=== PATIENT | female | born 1960 | race Caucasian/White ===

== ENCOUNTER 2019-05-01 19:30 | Inpatient (IN) | payer MEDICARE ==
[2019-05-01 20:30] LABS: Hemoglobin 12.2 g/dL (12.0-16.0); Mean Corpuscular Hemoglobin 38.4 pg (27.0-31.0); Mean Platelet Volume 7.9 fL (7.4-10.4); Platelet Count 259 thou/uL (130-400); RBC Distribution Width 11.6 % (11.5-14.5); Red Blood Cell (RBC) Count 3.18 mill/uL (4.20-5.40); White Blood Cell (WBC) Count 7.6 thou/uL (4.8-10.8)
[2019-05-01 20:36] LABS: ALT (SGPT) 14 U/L (8-55); AST (SGOT) 23 U/L (5-34); Albumin 3.9 g/dL (3.5-5.0); Alkaline Phosphatase 88 U/L (40-110); Anion Gap 11 mmol/L (10-20); BUN (Urea Nitrogen) 6 mg/dL (9.8-20.1); Bilirubin, Total 0.2 mg/dL (0.2-1.2); CK (CPK) 514 U/L (29-168); Calc. Creatinine Clearance 0 mL/min (70-130); Calcium 8.7 mg/dL (7.8-10.44); Carbon Dioxide 27 mmol/L (22-29); Chloride 107 mmol/L (98-107); Estimated GFR-MDRD 79; Globulin 2.5 g/dL (2.4-3.5); Glucose 108 mg/dL (70-105); Potassium 3.6 mmol/L (3.5-5.1); Protein, Total 6.4 g/dL (6.0-8.3); Sodium 141 mmol/L (136-145)
[2019-05-01 20:53] LABS: #Basophils 0.1 thou/uL (0.0-0.2); #Eosinphils 0.1 thou/uL (0.0-0.7); #Lymphocytes 2.7 thou/uL (1.20-3.40); #Monocytes 0.5 thou/uL (0.11-0.59); #Neutrophils 4.2 thou/uL (1.40-6.50); %Basophils 1.2 % (0.0-1.0); %Eosinophils 1.9 % (0.0-10.0); %Lymphocytes 35.6 % (21.0-51.0); %Monocytes 6.4 % (0.0-10.0); %Neutrophils 54.9 % (42.0-75.0); MDiff Complete? YES; Macrocytosis SLIGHT = 6-15 cells (100X) (0-5/hpf)
[2019-05-01] MEDS ORDERED: Acetaminophen 500 MG TAB ONE (22:15)
[2019-05-01] MEDS ORDERED: Aspirin 325 MG TAB ONE (23:54)
[2019-05-02] MEDS ORDERED: Enalaprilat Dihydrate 1.25 MG/ML VIAL SLOW IVP PRN (01:42)
[2019-05-02] MEDS ORDERED: hydrALAZINE 20 MG/ML VIAL SLOW IVP PRN (01:42)
[2019-05-02] MEDS ORDERED: Labetalol HCl 100 MG/20 ML VIAL SLOW IVP PRN (01:42)
[2019-05-02] MEDS ORDERED: Fioricet 325/50/40 mg Tablet PO PRN (01:48)
[2019-05-02] MEDS ORDERED: Dicyclomine 20 MG TAB PO SCH (02:00)
[2019-05-02] MEDS ORDERED: Cyclobenzaprine 10 MG TAB PO SCH ×3 (02:00→09:00)
[2019-05-02] MEDS ORDERED: Gabapentin 300 MG CAP PO SCH (02:15)
[2019-05-02] MEDS ORDERED: Emtricitabine/Tenofovir 200-300 MG TAB PO SCH ×2 (02:15→21:00)
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
[2019-05-02] MEDS: Morphine ER 15 MG TAB PO SCH ×3 (03:18→19:25)
[2019-05-02 03:57] VITALS: BMI 21.5
[2019-05-02 05:09] LABS: #Basophils 0.1 thou/uL (0.0-0.2); #Eosinphils 0.1 thou/uL (0.0-0.7); #Lymphocytes 1.8 thou/uL (1.20-3.40); #Monocytes 0.4 thou/uL (0.11-0.59); #Neutrophils 3.3 thou/uL (1.40-6.50); %Basophils 0.9 % (0.0-1.0); %Eosinophils 2.5 % (0.0-10.0); %Monocytes 6.9 % (0.0-10.0); %Neutrophils 58.7 % (42.0-75.0); Hemoglobin 11.8 g/dL (12.0-16.0); Mean Corpuscular HGB CONC 33.6 g/dL (32.0-36.0); Mean Corpuscular Hemoglobin 37.6 pg (27.0-31.0); Platelet Count 263 thou/uL (130-400); RBC Distribution Width 11.6 % (11.5-14.5); Red Blood Cell (RBC) Count 3.14 mill/uL (4.20-5.40); White Blood Cell (WBC) Count 5.7 thou/uL (4.8-10.8)
[2019-05-02 05:16] LABS: INR-International Normal Ratio 0.9; PTT 28.9 SEC (22.9-36.1); Prothrombin Time 12.1 SEC (12.0-14.7)
[2019-05-02 05:42] LABS: ALT (SGPT) 12 U/L (8-55); AST (SGOT) 20 U/L (5-34); Albumin 3.7 g/dL (3.5-5.0); Alkaline Phosphatase 89 U/L (40-110); Bilirubin, Direct 0.1 mg/dL (0.1-0.3); Bilirubin, Total 0.2 mg/dL (0.2-1.2)
[2019-05-02 05:43] LABS: Anion Gap 11 mmol/L (10-20); BUN (Urea Nitrogen) 6 mg/dL (9.8-20.1); Calc. Creatinine Clearance 78 mL/min (70-130); Calcium 8.9 mg/dL (7.8-10.44); Carbon Dioxide 26 mmol/L (22-29); Cardiac Risk 4.1 (Less than 4.5); Chloride 108 mmol/L (98-107); Cholesterol 205 mg/dl (< 200 Desired); Estimated GFR-MDRD 90; Glucose 95 mg/dL (70-105); HDL Cholesterol 50 mg/dL (>60 Neg Risk); LDL Cholesterol, Calculated 132 mg/dL; Potassium 3.8 mmol/L (3.5-5.1); Sodium 141 mmol/L (136-145); Triglycerides 115 mg/dL (Less than 150)
--- NOTE | 2019-05-02 08:05 | CT ---
CT angiogram head with 3-D rendering: CT angiogram neck with 3-D rendering: Emergency after hours exam 2:23 AM 05/02/2019 This a final report There are some generalized atherosclerotic calcific plaque particularly in the intracranial portions of the internal carotid arteries bilaterally worse on the right side as well as the intracranial portions of both right and left vertebral arteries with a mid to high-grade stenosis of the right jim tebral artery. No evidence for an M1 segment significant stenosis. This report is in agreement with the preliminary report.
[2019-05-02] MEDS ORDERED: Cyclobenzaprine 10 MG TAB PO PRN (08:14)
[2019-05-02] MEDS: oxyCODONE/Acetaminophen 5 mg/325 mg Tablet PO PRN ×2 (08:27→22:46)
[2019-05-02] MEDS ORDERED: Aspirin 325 MG TAB PO SCH (09:00)
[2019-05-02] MEDS ORDERED: Lisinopril 20 MG TAB PO SCH (09:00)
[2019-05-02] MEDS ORDERED: Non-Formulary Item 1 EACH (Gabapentin [Gabapentin] 600 MG) PO SCH (09:00)
[2019-05-02] MEDS: Fioricet 325/50/40 mg Tablet PO PRN ×2 (09:25→19:25)
--- NOTE | 2019-05-02 09:31 | MRI ---
MRI of thebrain with and without contrast: 05/02/2019 COMPARISON:None available HISTORY:Transient ischemic attack TECHNIQUE: Multiplanar multisequence MR imaging of thebrain with and without contrast Findings:The diffusion weighted imaging demonstrates no evidence for acute infarction. Axial gradient echo imaging demonstrates no evidence for intracranial hemorrhage. Multiple scattered subcentimeter foci of increased T2 and FLAIR signal noted within the periventricul ar white matter suggesting mild small vessel disease. The postcontrast imaging demonstrates no abnormal enhancement within the brain parenchyma. IMPRESSION:Small vessel disease with no evidence for acute infarction or intracranial hemorrhage.
[2019-05-02] MEDS: Lisinopril 20 MG TAB PO SCH (10:58)
[2019-05-02] MEDS: Gabapentin 300 MG CAP PO SCH ×3 (10:59→21:48)
[2019-05-02] MEDS: Aspirin 325 mg Enteric Coated Tablet PO SCH (10:59)
[2019-05-02] MEDS: Cyanocobalamin (Vitamin B-12) 1,000 MCG TAB PO SCH (10:59)
[2019-05-02] MEDS: Clopidogrel Bisulfate 75 MG TAB PO SCH (10:59)
[2019-05-02] MEDS: Enoxaparin Sodium 40 MG/0.4 ML SYRINGE SC SCH ×2 (11:00→12:13)
[2019-05-02] MEDS: Dicyclomine 20 MG TAB PO SCH ×3 (12:12→21:48)
[2019-05-02] MEDS ORDERED: Iopamidol-370 76% 500 ML 1 ML ONE (14:19)
[2019-05-02] MEDS ORDERED: Magnevist 469MG/ML 20 ML VIAL ONE (14:39)
[2019-05-02] MEDS ORDERED: Atorvastatin Calcium 40 MG TAB PO SCH ×2 (21:00)
[2019-05-02] MEDS ORDERED: EFAVIRENZ PO SCH (21:00)
[2019-05-02] MEDS ORDERED: EMTRICITAB PO SCH (21:00)
[2019-05-02] MEDS ORDERED: TENOFOVIR PO SCH (21:00)
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
[2019-05-03] MEDS: Morphine ER 15 MG TAB PO SCH ×2 (03:27→09:44)
[2019-05-03 04:45] LABS: #Eosinphils 0.1 thou/uL (0.0-0.7); #Lymphocytes 1.4 thou/uL (1.20-3.40); #Monocytes 0.4 thou/uL (0.11-0.59); #Neutrophils 1.6 thou/uL (1.40-6.50); %Basophils 0.9 % (0.0-1.0); %Eosinophils 3.3 % (0.0-10.0); %Lymphocytes 39.8 % (21.0-51.0); %Monocytes 11.7 % (0.0-10.0); %Neutrophils 44.2 % (42.0-75.0); Hemoglobin 11.2 g/dL (12.0-16.0); Mean Corpuscular HGB CONC 33.3 g/dL (32.0-36.0); Mean Corpuscular Hemoglobin 37.7 pg (27.0-31.0); Mean Platelet Volume 7.9 fL (7.4-10.4); Platelet Count 256 thou/uL (130-400); RBC Distribution Width 11.5 % (11.5-14.5); Red Blood Cell (RBC) Count 2.97 mill/uL (4.20-5.40); White Blood Cell (WBC) Count 3.6 thou/uL (4.8-10.8)
[2019-05-03 05:16] LABS: Anion Gap 10 mmol/L (10-20); BUN (Urea Nitrogen) 10 mg/dL (9.8-20.1); Calc. Creatinine Clearance 74 mL/min (70-130); Calcium 8.6 mg/dL (7.8-10.44); Carbon Dioxide 28 mmol/L (22-29); Chloride 106 mmol/L (98-107); Estimated GFR-MDRD 85; Glucose 93 mg/dL (70-105); Potassium 4.1 mmol/L (3.5-5.1); Sodium 140 mmol/L (136-145)
[2019-05-03] MEDS ORDERED: Dicyclomine 20 MG TAB PO SCH (09:00)
[2019-05-03] MEDS: Aspirin 325 mg Enteric Coated Tablet PO SCH (09:44)
[2019-05-03] MEDS: Cyanocobalamin (Vitamin B-12) 1,000 MCG TAB PO SCH (09:46)
[2019-05-03] MEDS: Gabapentin 300 MG CAP PO SCH ×2 (09:46→16:06)
[2019-05-03] MEDS: Dicyclomine 20 MG TAB PO SCH ×2 (09:47→16:06)
[2019-05-03] MEDS: Clopidogrel Bisulfate 75 MG TAB PO SCH (09:47)
[2019-05-03] MEDS: Enoxaparin Sodium 40 MG/0.4 ML SYRINGE SC SCH (09:49)
[2019-05-03] MEDS: Lisinopril 20 MG TAB PO SCH (10:17)
[2019-05-03 11:44] VITALS: BP 128/63; TEMP 98.4
--- NOTE | 2019-05-03 13:47 | MRI ---
MRI cervical spine noncontrast: DATE: 05/03/2019 HISTORY: 59-year-old female with right cervical radiculopathy and cervicalgia. COMPARISON: None FINDINGS: There is reversal of the normal cervical lordosis, with apex of kyphosis at C3-4. There is moderate t o severe disc space narrowing at C3-4, C4-5, C5-6, and C6-7. At all those levels, there are broad based disc-osteophytic bar complex is that protrude into the spinal canal, and indent the ventral paul face of the spinal cord, displacing the spinal cord posteriorly. These disc-osteophyte complexes contiguously extend as moderate to large bilateral uncinate process osteophytes that encroach upon th e bilateral neural foramina. Vertebral body heights are maintained. Multilevel predominantly mild degenerative facet changes bilaterally. Moderate to severe left facet DJD at C7-T1. Mild to moderate facet DJD on the right at C7-T1. Cervical spinal cord is normal in size and signal. Grade 1 anterolisthesis of C7 on T1 and T2 on T3 due to facet DJD. C1-2: No central stenosis. C2-3: Small central disc protrusion. No high-grade central stenosis. No neural foraminal stenosis. C3-4: Somewhat severe central spinal canal stenosis. Very severe bilateral neural foraminal stenosis, left worse than right. C4-5: Severe central spinal canal stenosis. Severe bilateral neural foraminal stenosis. C5-6: Very severe central spinal canal stenosis. Severe bilateral neural foraminal stenosis, left wor se than right. C6-7: Severe central spinal canal stenosis. Severe right neural foraminal stenosis. Extremely severe left neural foraminal stenosis. C7-T1: Slight grade 1 anterolisthesis of C7 on T1 due to facet DJD. No high-grade central spinal david l stenosis. Moderate to severe bilateral neural foraminal stenosis. IMPRESSION: 1. Cervical spondylosis, including multilevel moderate to severe degenerative disc disease. 2. Multilevel severe central spinal canal stenosis (with chronic cord impingements) and multilevel se preston neural foraminal stenosis (with chronic nerve root impingements).
[2019-05-03] MEDS: oxyCODONE/Acetaminophen 5 mg/325 mg Tablet PO PRN (13:49)
[2019-05-03] MEDS ORDERED: Emtricitabine/Tenofovir 200-300 MG TAB PO SCH (21:00)
--- NOTE | 2019-05-05 11:58 | DIS ---
DATE OF ADMISSION: 05/01/2019 DATE OF DISCHARGE: 05/03/2019 REASON FOR HOSPITALIZATION: Stroke symptoms. SIGNIFICANT FINDINGS: The patient was found to have a negative stroke workup, though she was found to have moderate to severe chronic changes with degenerative disk disease that will require outpatient followup in the clinic. PROCEDURES PERFORMED AND TREATMENTS RENDERED: Ms. Page is a very pleasant 59-year-old female who presented to [facility] with stroke symptoms on 05/01/2019. Please see full history and physical, consultation notes from Neurology, and full radiographic reports for full details. The patient had all appropriate neurologic imaging prior to discharge and was found to have no acute neurologic signs or symptoms of stroke. The patient's CT angiography of the head and neck was within normal limits. The patient's MRI of the brain was negative for acute CVA. The patient's MRI of the cervical spine does show chronic changes with moderate to severe severity on multiple spinal levels. The patient does not want to have aggressive surgical procedures, and she was interested in medical therapy. The patient states that she would like to try conservative management with stretching, strength building, neuropathy medications including her gabapentin and the addition of lidocaine patches to control these symptoms. The patient does not have any impairment in her strength, and she has good functional status. The patient is able to take care of herself, walks to and from the restroom and down the halls without difficulty. The patient does have some numbness and tingling and a burning sensation in her extremities, which she states that the gabapentin does help with. I recommended that she discuss these findings with her primary care physician in the next 5 to 7 days and if conservative measures are not adequate, then she may need to see a spinal surgeon in the outpatient setting as a last resort. The patient is happy with this plan of care. I stressed the importance of the patient abstaining from tobacco use, and nicotine patches were sent to her preferred pharmacy to help her quit smoking. The patient was recommended safe for discharge by Neurology on 05/03/2019. CONDITION ON DISCHARGE: Stable. SPECIFIC INSTRUCTIONS FOR THE PATIENT/FAMILY: 1. The patient recommended to take all medications as directed, to be re-evaluated by primary care physician in the next 5 to 7 days. 2. The patient recommended to follow up with primary care physician in the next 5 to 7 days. 3. The patient recommended to return to acute care hospital immediately if she develops any new or worsening weakness, paresthesias, or any other symptoms. 4. The patient recommended to return to acute care hospital immediately if signs or symptoms return, worsen, or any other new symptoms occur. 5. 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 DISCHARGE MEDICATIONS: Please see full discharge medication list for details. 1. Lidocaine 5% transdermal patch, topical daily p.r.n. pain or neuropathy. 2. Nicoderm 14 mg transdermal patch daily. 3. Metoprolol succinate 100 mg one tablet p.o. b.i.d. 4. Aspirin 325 mg one tablet p.o. daily. 5. Lisinopril 20 mg one tablet p.o. daily. 6. Plavix 75 mg one tablet p.o. daily. 7. Atripla one tablet p.o. at bedtime. 8. Fioricet 1 tablet p.o. b.i.d. p.r.n. migraine. 9. Gabapentin 600 mg one tablet p.o. t.i.d. 10. Atorvastatin 80 mg one tablet p.o. at bedtime. 11. Flexeril 10 mg one tablet p.o. b.i.d. p.r.n. muscle spasms. 12. Bentyl 20 mg one tablet p.o. t.i.d. 13. Vitamin B12 of 1000 mcg one tablet p.o. daily. 14. Vitamin D3 of 1000 units p.o. daily. 15. Morphine extended release 15 mg p.o. t.i.d. 16. Oxycodone/acetaminophen 7.5mg/325 mg one tablet p.o. t.i.d. p.r.n. severe pain. 17. Nitroglycerin 0.4 mg sublingual q.5 minutes p.r.n. chest pain or discomfort. Greater than 40 minutes spent coordinating care and discharge process for this patient. Job ID: [id number]
[2019-05-05 14:09] LABS: HIV-1 Quantitative, RNA PCR <20 copies/mL (.)
[2019-05-05 15:09] LABS: Absolute CD4 833 /uL (359-1519); Lymphocytes/Gated Cell Count 1.7 x10E3/uL (0.7-3.1); Total Lymphocyte 30 % (Not Estab.); WBC Total Count 5.4 x10E3/uL (3.4-10.8)
--- NOTE | 2019-05-06 07:20 | PQF ---
Shital ReesuLci camargo PRASHANT THOMAS [id number] CLINICAL DOCUMENTATION CLARIFICATION FORM: POST DISCHARGE Addendum to original discharge summary date: ____ Late entry note date: __ DATE: 05/06/2019 ATTN:PRASHANT THOMAS Please exercise your independent, professional judgment in responding to the clarification form. Clinical indicators are provided on the bottom of this form for your review Please check appropriate box(s): [ XX ] Muscle Weakness [ ] Weakness NOS [ ] Other diagnosis [ ] Unable to determine CLINICAL INDICATORS - SIGNS / SYMPTOMS / LABS - R sided weakness, facial droop, dysarthria- H&P, 05/02, Janet Forrest MD - The patient does have some numbness and tingling and a burning sensation in her extremities- DS, 05/03, PRASHANT THOMAS - Negative for stroke workup- DS, 05/03, PRASHANT THOMAS - found to have moderate to severe chronic changes with DDD- DS, 05/03, PRASHANT THOMAS - She has good functional status- DS, 05/03, PRASHANT THOMAS RISK FACTORS - PMH: Hx of CVA 2015- H&P, 05/02, Janet Forrest MD - PMH: HIV- H&P, 05/02, Janet Forrest MD TREATMENT: - Morphine.IV- MAY, 05/02 (This form is maintained as a part of the permanent medical record) 2014 [place], [employer]. All Rights Reserved Juanita [email or web address]
== END 2019-05-03 16:22 | disposition home or self-care (01) | DRG 556 ==
LOC: ERS 19:30 → 2SE 21:11 → OBSVTOIN 21:11
PROVIDERS: ADMIT Internal Medicine; ATTEND Internal Medicine
DX: M62.81 Muscle weakness (generalized) (principal); R29.810 Facial weakness; R47.81 Slurred speech; I10 Essential (primary) hypertension; I25.10 Atherosclerotic heart disease of native coronary artery without angina pectoris; R47.1 Dysarthria and anarthria; Z21 Asymptomatic human immunodeficiency virus [HIV] infection status; F17.210 Nicotine dependence, cigarettes, uncomplicated; Z86.73 Personal history of transient ischemic attack (TIA), and cerebral infarction without residual deficits; Z95.1 Presence of aortocoronary bypass graft; Z90.49 Acquired absence of other specified parts of digestive tract; Z90.710 Acquired absence of both cervix and uterus; Z95.5 Presence of coronary angioplasty implant and graft
CPT/HCPCS: 36415; 70450; 70496; 70498; 70553; 72141; 80048; 80053; 80061; 80076; 82550; 83735; 83880; 84484; 85025; 85048; 85610; 85730; 86361; 87536; 87804; 93005; 93306; A9579; J1650; Q9967

== ENCOUNTER 2019-10-06 05:38 | Outpatient (CLI) | payer MEDICARE, OTHER ==
[2019-10-06 14:05] LABS: Hemoglobin 13.4 g/dL (12.0-16.0); Mean Corpuscular HGB CONC 33.8 g/dL (32.0-36.0); Mean Corpuscular Hemoglobin 37.5 pg (27.0-31.0); Mean Platelet Volume 7.9 fL (7.4-10.4); Platelet Count 317 thou/uL (130-400); RBC Distribution Width 11.9 % (11.5-14.5); Red Blood Cell (RBC) Count 3.56 mill/uL (4.20-5.40); White Blood Cell (WBC) Count 6.6 thou/uL (4.8-10.8)
[2019-10-06 14:22] LABS: Anion Gap 14 mmol/L (10-20); BUN (Urea Nitrogen) 8 mg/dL (9.8-20.1); Calc. Creatinine Clearance 0 mL/min (70-130); Carbon Dioxide 23 mmol/L (22-29); Chloride 107 mmol/L (98-107); Estimated GFR-MDRD 78; Glucose 85 mg/dL (70-105); Sodium 140 mmol/L (136-145)
[2019-10-07 13:10] LABS: SARS-CoV-2 MS2 Positive; SARS-CoV-2 N Gene Negative; SARS-CoV-2 S Gene Negative; SARS-CoV-2 orf1ab Negative
== END 2019-10-06 05:39 | disposition home or self-care (01) ==
LOC: LABBT 05:38
PROVIDERS: ATTEND Emergency Medicine
DX: Z01.812 Encounter for preprocedural laboratory examination (principal); Z11.59 Encounter for screening for other viral diseases; M48.061 Spinal stenosis, lumbar region without neurogenic claudication
CPT/HCPCS: 80048; 85027; U0003; 87635

== ENCOUNTER 2019-10-08 05:25 | Day surgery (SDC) | payer MEDICARE ==
[2019-10-01 10:38] VITALS: BMI 19.3
--- NOTE | 2019-10-07 13:06 | HP ---
HISTORY OF PRESENT ILLNESS: Ms. Page is initially referred to us from ER evaluation after sustaining a fall, where she had L2 compression fracture. She had imaging performed in the ER visit, which was an MRI scan of the lumbar spine, which reveals high-grade severe lumbar stenosis at L4-L5 secondary to spondylolisthesis and degenerative changes in the facet joints. She struggles with back pain and right lower extremity pain. She also reports a series of several falls over the last few weeks and uses a walker at home secondary to her discomfort. She also has had 1 to 2 episodes of very low volume incontinence both urinary and fecal that she recalls, this is certainly not a constant trouble. She has attempted physical therapy, pain medications, and injections in the lumbar spine. However, these have only provided her with minimal relief. She hopes to discuss possible surgical intervention. PAST MEDICAL HISTORY: Significant for coronary arterial disease, hyperlipidemia, hypertension, anxiety, migraines, diverticulosis, history of CVA. PAST SURGICAL HISTORY: section x2, cholecystectomy, complete hysterectomy, appendectomy, CABG x2. ALLERGIES: NO KNOWN DRUG ALLERGIES. CURRENT MEDICATIONS: 1. Toprol-XL. 2. Lisinopril. 3. Aspirin. 4. Plavix. 5. Atripla. 6. Fvcejmvooj-vggnrnbuahqkp-klcnqgsp. 7. Gabapentin. 8. Flexeril. 9. Dicyclomine. 10. Atorvastatin. 11. Nitroglycerin p.r.n. 12. Tylenol No. 3 p.r.n. ASSESSMENT: Lumbar spinal stenosis with neurogenic claudication and lumbar radiculopathy. PLAN: Dr. Laura met with the patient, reviewed imaging, and advocated for L4-L5 decompression. He explained to the patient the risks, benefits, and alternatives of the procedure. The patient expressed understanding and elected to move forward with surgery as discussed. I do believe the patient is mentally competent and capable of making medical decisions for herself. We will move forward with surgery as planned. Job ID: [id number]
[2019-10-08] MEDS ORDERED: Bupivacaine PF 0.5% 30 ML VIAL ONE (06:11)
[2019-10-08] MEDS ORDERED: EPINEPHrine 1 MG/ML AMP ONE (06:11)
[2019-10-08] MEDS ORDERED: Thrombin 5000 UNITS/5 ML VIAL ONE (06:11)
[2019-10-08] MEDS ORDERED: Fentanyl 100 MCG/2 ML VIAL ONE ×3 (06:17→08:46)
[2019-10-08] MEDS ORDERED: Midazolam HCl 2 mg/2 ml Vial ONE (06:18)
[2019-10-08] MEDS ORDERED: Morphine 4 MG/ML VIAL ONE (08:57)
--- NOTE | 2019-10-08 09:13 | OP ---
DATE OF PROCEDURE: 10/08/2019 BATON TEACHER: Tony Cuenca PA-C INDICATION: Pain. DIAGNOSIS: Lumbar stenosis. PROCEDURE PERFORMED: L4-L5 decompression. ANESTHESIA: General. DESCRIPTION OF PROCEDURE: The patient was brought into the operating room and placed under general anesthesia. She was flipped from the supine to prone position on operating room table. A linear incision was planned over the L4-L5 segment. After prepping and draping and after an appropriate preoperative pause, the incision was created. The soft tissues were swept away from midline. Self-retaining retractors were placed in the wound for optimal exposure. After confirming appropriate level with C-arm fluoroscopy, an Adson rongeur was used to move the spinous process along the inferior aspect of L4 and the superior aspect of L5. A high-speed cutting drill bit as well as 2, 3, and 4 mm Kerrisons were then used to complete the laminectomy defect. Laminectomy defect was extended laterally to encompass the medial aspect of the facet joints. There was offset in a grade 1 spondylolisthesis present both on imaging and surgically, although there was no motion of concern. After decompressing the L4-5 segment, the wound was irrigated. Hemostasis was maintained throughout. The wound was then closed in anatomic layers, and a pressure dressing was applied. There were no known procedural complications. Job ID: [id number]
[2019-10-08] MEDS ORDERED: Acetaminophen/Codeine 30-300mg Tablet ONE (09:43)
[2019-10-08] MEDS ORDERED: Morphine 2 MG/ML VIAL ONE (10:05)
[2019-10-08] MEDS ORDERED: Rocuronium Bromide 10 MG/ML (10ML VIAL) ONE (10:49)
[2019-10-08] MEDS ORDERED: Ketorolac Tromethamine 30 MG/ML VIAL ONE (10:49)
[2019-10-08] MEDS ORDERED: Ondansetron PF 4 MG/2 ML Vial ONE (10:49)
[2019-10-08] MEDS ORDERED: PROPOFOL 200 MG/20 ML VIAL ONE (10:49)
[2019-10-08] MEDS ORDERED: Lidocaine 1% PF 5 ML VIAL ONE (10:49)
[2019-10-08] MEDS ORDERED: Glycopyrrolate 0.2 MG/ML 5 ML SYRINGE ONE (10:49)
[2019-10-08] MEDS ORDERED: Dexamethasone 20 MG/5 ML VIAL ONE (10:49)
== END 2019-10-08 11:15 | disposition home or self-care (01) ==
LOC: SDC 05:25
PROVIDERS: ATTEND Neurological Surgery
PROC: 01NB0ZZ Release Lumbar Nerve, Open Approach (ICD-10-PCS; principal; 2019-10-08)
DX: M43.16 Spondylolisthesis, lumbar region (principal); M47.26 Other spondylosis with radiculopathy, lumbar region; M48.062 Spinal stenosis, lumbar region with neurogenic claudication; I25.10 Atherosclerotic heart disease of native coronary artery without angina pectoris; E78.5 Hyperlipidemia, unspecified; I10 Essential (primary) hypertension; F41.9 Anxiety disorder, unspecified; G43.909 Migraine, unspecified, not intractable, without status migrainosus; R32 Unspecified urinary incontinence; R15.9 Full incontinence of feces; Z86.73 Personal history of transient ischemic attack (TIA), and cerebral infarction without residual deficits; Z79.02 Long term (current) use of antithrombotics/antiplatelets; Z79.82 Long term (current) use of aspirin; Z79.899 Other long term (current) drug therapy; Z95.1 Presence of aortocoronary bypass graft
CPT/HCPCS: 63047; 76000; J2270; J0171; J0690; J2250; J3010; S0020

== ENCOUNTER 2019-12-18 14:57 | Emergency (ER) | payer MEDICARE ==
[2019-12-18] MEDS ORDERED: Morphine 4 MG/ML VIAL ONE ×2 (16:10→18:03)
--- NOTE | 2019-12-18 16:53 | MRI ---
Exam: Thoracic spine MRI without contrast HISTORY: Previous compression fractures. Fecal incontinence of the last several days in addition wors ening pain. COMPARISON: None FINDINGS: Appropriate T1 marrow signal intensity of the thoracic vertebra. Thoracic spine vertebral b nj height is maintained from T1 through T11. There is no evidence of fracture. No significant STIR hyperintensity to suggest vertebral body edema or ligamentous injury. There are type II Modic changes at the anterior disc space at T5-T6, T6-T7, T7-T8, and T8-T9. There i s remote mild compression fracture at T12 and a prominent Schmorl's node along the inferior endplate of L1. There is subtle edema along the posterior superior T12 endplate, nonspecific. There i s mild retropulsion. Otherwise, no significant STIR hyperintensity. Appropriate signal intensity visualized paraspinal muscles, solid organs, mediastinum and lung parenc hyma The thoracic cord has a normal size and signal intensity. No cord malacia. No cord expansion. No abno rmal T2 hyperintensities in the cord. Conus medullaris extends beyond the T11 level. Axial images are obtained from T1-T2 through T10-T11. The axial images from T11-T12 down to L5-S1 sindy l be commented upon on a separate lumbar spine MRI report. The visualized central spinal canal and neural foramina are patent from T1-T2 through T10-T11 IMPRESSION: 1. Predominantly remote compression fracture and endplate irregularities at T12 and L1. Small focus o f edema is noted along the superior posterior T12 endplate. Mid mild retropulsion. Please refer to lumbar spine MRI for further evaluation of the T11-T12 disc space as well as the T12 vertebral body. 2. Visualized thoracic cord has normal size and signal intensity. No significant central canal stenos is. 3. Type II Modic changes in the mid thoracic spine.
--- NOTE | 2019-12-18 17:04 | MRI ---
MRI LUMBAR SPINE WITHOUT CONTRAST: 12/18/19 INDICATIONS: Back pain with incontinence. Comparison made to CT lumbar spine of 06/22/19. Compression deformity of the T12 vertebra is again seen and is stable. No edema. Diffuse degenerative disc change throughout the lumbar spine appears stable. Loss of disc space with anterolisthesis of L 4-5 is stable. Degenerative disc changes at L5-S1 appears stable. There is slight retropulsion of the posterior corner of the T12 vertebra flattening the thecal sac. N o evidence of impression on the conus and minimal central canal stenosis. At T12-L1, mild disc bulge without central canal stenosis. L1-2: Minimal disc bulge. No central canal or foraminal stenosis. L2-3: Diffuse disc bulge. Facet hypertrophy. Mild to moderate central canal stenosis. Mild left calvin inal encroachment. L3-4: Diffuse disc bulge. Moderate facet and ligamentous hypertrophy. Moderate central canal stenosis . Mild bilateral foraminal narrowing without significant foraminal stenosis. A disc osteophyte comple x may contact the exiting left L3 nerve root. L4-5: Anterolisthesis with diffuse disc bulge and facet hypertrophy results in moderate central canal stenosis. Bilateral foraminal stenosis at this level. Postop changes are seen posteriorly at L4-5 with laminectomy change. There is abnormal signal in the operative bed and extending to the spinal canal consistent with postoperative change. The postoperati ve changes have occurred since the CT of 06/22/19. L5-S1: Diffuse disc bulge. Congenitally smaller thecal sac. No significant central canal stenosis. Mi ld bilateral foraminal stenosis. Nerve root sleeve cyst seen in the sacrum. IMPRESSION: Multilevel degenerative disc change of the lumbar spine appears stable when compared to CT of 06/24/19 . Findings at each level are described. Postoperative change at L4-5 since the prior exam. No other s ignificant change. POS: AGW
== END 2019-12-18 19:30 | disposition home or self-care (01) ==
LOC: ERS 14:57
DX: M48.54XA Collapsed vertebra, not elsewhere classified, thoracic region, initial encounter for fracture (principal); B20 Human immunodeficiency virus [HIV] disease; I10 Essential (primary) hypertension; F17.210 Nicotine dependence, cigarettes, uncomplicated; Z86.73 Personal history of transient ischemic attack (TIA), and cerebral infarction without residual deficits
CPT/HCPCS: 72146; 72148; 96372; 96374; J2270

== ENCOUNTER 2020-01-29 08:29 | Outpatient (CLI) | payer MEDICARE ==
--- NOTE | 2020-01-29 09:31 | CT ---
CT Abdomen Pelvis W Con History: Epigastric pain Comparison: Abdomen pelvis CT June 2019 Findings: Lung bases are clear. No pericardial effusion. The spleen, adrenal mass, kidneys are unremarkable. No hydronephrosis. Mild pancreatic ductal dilatat ion as well as common bile duct dilatation. No significant intrahepatic biliary dilatation. These findings are similar. Moderate diverticular disease sigmoid colon without active current inflammation. No free intraperitoneal gas or fluid. No retroperitoneal periaortic adenopathy. Superior endplate compression deformity at T12 is similar. Grade 1 L4 over L5 anterolisthesis is [place]. Mild thickening of the adrenal glands. No underlying mass. Impression: 1. No acute inflammatory process within the abdomen or pelvis. 2. Continued mild dilatation of the common bile duct and pancreatic duct without obstructing mass may reflect papillary stenosis. If there is LFT elevation, nonemergent ERCP may be beneficial.
[2020-01-29] MEDS ORDERED: Iopamidol 370 76% 100 ML VIAL ONE (14:09)
== END 2020-01-29 08:30 | disposition home or self-care (01) ==
LOC: CT 08:29
PROVIDERS: ATTEND Physician Assistant Medical
DX: R10.13 Epigastric pain (principal); K59.00 Constipation, unspecified; K92.1 Melena; R15.9 Full incontinence of feces; K60.3 Anal fistula
CPT/HCPCS: 74177; Q9967

== ENCOUNTER 2020-01-30 06:40 | Outpatient (CLI) | payer MEDICARE, OTHER ==
[2020-01-30 17:49] LABS: SARS-CoV-2 MS2 Positive; SARS-CoV-2 N Gene Negative; SARS-CoV-2 S Gene Negative; SARS-CoV-2 by NAA Not Detected (NotDetected); SARS-CoV-2 orf1ab Negative
== END 2020-01-30 06:41 | disposition home or self-care (01) ==
LOC: LABBT 06:40
PROVIDERS: ATTEND Neurological Surgery
DX: Z20.828 Contact with and (suspected) exposure to other viral communicable diseases (principal)
CPT/HCPCS: 87635; U0003

== ENCOUNTER 2020-02-04 05:50 | Day surgery (SDC) | payer MEDICARE ==
[2020-02-03 12:02] VITALS: BMI 19.8
--- NOTE | 2020-02-03 22:02 | HP ---
HISTORY: Ms. Page is a pleasant 59-year-old woman presenting for evaluation of recurrent radicular pain. She had undergone prior surgery earlier this summer for a similar issue. Although this time, she has what appears to be more disk related issues on MRI, specifically scar tissue, disk material and then some osteophytes down at the level adjacent to her prior decompression down at L5-S1. She hopes to discuss surgical intervention. PAST MEDICAL HISTORY: Coronary artery disease, hyperlipidemia, hypertension, anxiety, migraines, diverticulosis, cerebrovascular accident. PAST SURGICAL HISTORY: section x2, cholecystectomy, complete hysterectomy, appendectomy, CABG x2, lumbar decompression. CURRENT MEDICATIONS: 1. Toprol-XL. 2. Lisinopril. 3. Aspirin. 4. Plavix. 5. Atripla. 6. Ewqbmctkhp-xxwudzdlfpzpj-roqkocmm. 7. Gabapentin. 8. Flexeril. 9. Dicyclomine. 10. Atorvastatin. 11. Nitroglycerin. 12. Tylenol No. 3. ALLERGIES: NO KNOWN DRUG ALLERGIES. ASSESSMENT: Lumbar radiculopathy. PLAN: Dr. Laura met with the patient, reviewed imaging, and advocated for right L4-S1 decompression. He explained to the patient the risks, benefits, and alternatives to the procedure. The patient expressed understanding and elected to move forward with surgery as discussed. I do believe the patient is mentally competent and capable of making medical decisions for herself. We will move forward with surgery as planned. Job ID: [id number]
[2020-02-04] MEDS ORDERED: EPINEPHrine 1 MG/ML AMP ONE (06:33)
[2020-02-04] MEDS ORDERED: Bupivacaine PF 0.5% 30 ML VIAL ONE (06:33)
[2020-02-04] MEDS ORDERED: Thrombin 5000 UNITS/5 ML VIAL ONE (06:33)
[2020-02-04] MEDS ORDERED: Fentanyl 100 MCG/2 ML VIAL ONE ×4 (07:22→09:56)
[2020-02-04] MEDS ORDERED: Famotidine/PF 20 mg/2ml Vial ONE (07:35)
[2020-02-04] MEDS ORDERED: Lidocaine 1% PF 5 ML VIAL ONE (08:53)
[2020-02-04] MEDS ORDERED: Dexamethasone 20 MG/5 ML VIAL ONE (08:53)
[2020-02-04] MEDS ORDERED: Glycopyrrolate 0.2 MG/ML 5 ML SYRINGE ONE (08:53)
[2020-02-04] MEDS ORDERED: PROPOFOL 200 MG/20 ML VIAL ONE (08:53)
[2020-02-04] MEDS ORDERED: Ondansetron PF 4 MG/2 ML Vial ONE (08:53)
[2020-02-04] MEDS ORDERED: EPHEDRINE 25 MG/5 ML SYRINGE ONE (08:53)
[2020-02-04] MEDS ORDERED: Rocuronium Bromide 10 MG/ML (10ML VIAL) ONE (08:53)
--- NOTE | 2020-02-04 08:57 | OP ---
DATE OF PROCEDURE: 02/04/2020 GARMENT MANUFACTURING SUPERVISOR: Tony Cuenca PA-C. INDICATION: Pain. DIAGNOSES: Lumbar radiculopathy, lateral recess stenosis. PROCEDURE PERFORMED: Reoperation of right L4-S1 decompression. ANESTHESIA: General. DESCRIPTION OF PROCEDURE: The patient was brought into the operating room and placed under general anesthesia. She was flipped from the supine to prone position on the operating room table. A linear incision was planned spanning L4 through S1. After prepping and draping and an operative pause, the incision was created. The soft tissues were swept away from midline. Self-retaining retractors were placed. High-speed cutting drill bit as well as 2, 3, and 4 mm Kerrisons were used to perform a laminectomy spanning the inferior aspect of L4 to the top of S1. The medial aspect of the facet joint was loose at L5 and that was removed. At the completion of the procedure, the lateral recess as well as the exiting L5 nerve root was well decompressed as the exiting L4 nerve root also was decompressed with a proximal foraminotomy. The wound was irrigated. Hemostasis was maintained throughout. The wound was then closed in anatomic layers, and a pressure dressing was applied. There were no known procedural complications. Job ID: [id number]
[2020-02-04] MEDS ORDERED: Acetaminophen/Codeine 30-300mg Tablet ONE (10:58)
[2020-02-04] MEDS ORDERED: Promethazine HCl 25 MG/ML VIAL ONE (10:58)
== END 2020-02-04 11:55 | disposition home or self-care (01) ==
LOC: SDC 05:50
PROVIDERS: ATTEND Neurological Surgery
PROC: 01NB0ZZ Release Lumbar Nerve, Open Approach (ICD-10-PCS; principal; 2020-02-04)
DX: M48.061 Spinal stenosis, lumbar region without neurogenic claudication (principal); M54.16 Radiculopathy, lumbar region; I25.10 Atherosclerotic heart disease of native coronary artery without angina pectoris; E78.5 Hyperlipidemia, unspecified; I10 Essential (primary) hypertension; F41.9 Anxiety disorder, unspecified; Z79.02 Long term (current) use of antithrombotics/antiplatelets; Z79.82 Long term (current) use of aspirin; Z79.899 Other long term (current) drug therapy; Z86.73 Personal history of transient ischemic attack (TIA), and cerebral infarction without residual deficits; Z95.1 Presence of aortocoronary bypass graft; Z95.5 Presence of coronary angioplasty implant and graft
CPT/HCPCS: 76000; J0171; J0690; J1100; J2405; J2550; J2704; J3010; S0020; S0028

== ENCOUNTER 2020-02-18 21:25 | Inpatient (IN) | payer MEDICARE ==
[~2020-02-18 21:25] MED LIST: Iopamidol-370 76% 500 ML 1 ML ONE
[2020-02-18] MEDS ORDERED: Ondansetron PF 4 MG/2 ML Vial ONE (22:16)
[2020-02-18 22:35] LABS: #Basophils 0.1 thou/uL (0.0-0.2); #Eosinphils 0.2 thou/uL (0.0-0.7); #Lymphocytes 2.8 thou/uL (1.20-3.40); #Monocytes 0.9 thou/uL (0.11-0.59); #Neutrophils 13.8 thou/uL (1.40-6.50); %Basophils 0.7 % (0.0-1.0); %Eosinophils 1.4 % (0.0-10.0); %Lymphocytes 15.6 % (21.0-51.0); %Monocytes 4.9 % (0.0-10.0); %Neutrophils 77.4 % (42.0-75.0); Hemoglobin 14.3 g/dL (12.0-16.0); Mean Corpuscular HGB CONC 33.8 g/dL (32.0-36.0); Mean Corpuscular Hemoglobin 37.3 pg (27.0-31.0); Mean Platelet Volume 6.9 fL (7.4-10.4); Platelet Count 449 thou/uL (130-400); RBC Distribution Width 11.8 % (11.5-14.5); Red Blood Cell (RBC) Count 3.82 mill/uL (4.20-5.40); White Blood Cell (WBC) Count 17.8 thou/uL (4.8-10.8)
[2020-02-18 22:52] LABS: ALT (SGPT) 25 U/L (8-55); AST (SGOT) 26 U/L (5-34); Albumin 4.6 g/dL (3.4-4.8); Alkaline Phosphatase 121 U/L (40-110); Anion Gap 18 mmol/L (10-20); BUN (Urea Nitrogen) 10 mg/dL (9.8-20.1); Bilirubin, Total 0.2 mg/dL (0.2-1.2); Calc. Creatinine Clearance 0 mL/min (70-130); Calcium 9.6 mg/dL (7.8-10.44); Carbon Dioxide 23 mmol/L (23-31); Chloride 102 mmol/L (98-107); Estimated GFR-MDRD 60; Glucose 95 mg/dL (80-115); Lipase 24 U/L (8-78); Potassium 3.8 mmol/L (3.5-5.1); Protein, Total 7.6 g/dL (6.0-8.3); Sodium 139 mmol/L (136-145)
--- NOTE | 2020-02-18 23:21 | CT ---
CT BRAIN NONCONTRAST: DATE: 02/18/2020 HISTORY: 60-year-old female with headache, nausea, and vomiting FINDINGS: There is no evidence of acute intra-axial or extra-axial hemorrhage. There is no midline shift or any other mass effect. There is no extra-axial fluid collection. There is no evidence of obstructive hydrocephalus. Calvarium is intact. IMPRESSION: No acute intracranial findings.
[2020-02-18] MEDS ORDERED: Acetaminophen 325 MG TAB PO PRN (23:56)
[2020-02-19] MEDS ORDERED: Cefepime 2 GM VIAL ONE (00:12)
[2020-02-19] MEDS ORDERED: metroNIDAZOLE 500 MG/100 ML BAG ONE (00:14)
--- NOTE | 2020-02-19 00:19 | PDOC.BPN ---
- Brief Progress Note [id number] HP dictated
[2020-02-19 01:31] LABS: Lactic Acid 1.7 mmol/L (0.5-2.2)
[2020-02-19 01:54] VITALS: BMI 20.9
[2020-02-19] MEDS: metroNIDAZOLE 500 MG in Premix Bag 1 BAG IVPB SCH ×3 (02:45→17:05)
[2020-02-19] MEDS: D5 1/2 NS w/10 mEq KCl 1,000 ML/1,000 ML BAG IV SCH ×2 (02:46→10:57)
--- NOTE | 2020-02-19 03:53 | HP ---
CHIEF COMPLAINT: Nausea, vomiting, abdominal pain and diarrhea. HISTORY OF PRESENT ILLNESS: Ms. Page is a 60-year-old female with past medical history of hypertension, HIV under treatment as per records, recurrent CVA with residual memory impairment, among others, presents to the emergency room with abdominal pain, nausea, vomiting, and diarrhea that started earlier today. The patient also had fever. The patient 2 weeks ago had surgery and she received antibiotics preop and postop. Her mother also was admitted and was found to have an MRSA infection. Workup in the emergency room, patient had elevated WBC count of 17.8, platelets 449, hemoglobin 14.3, lactic acid was 2.5. CT of the brain, no acute findings. CT abdomen, official report is not available, but as per ER physician, no acute finding. Septic workup done in the ED. Suspicion for C. diff. The patient was started on Flagyl for now. The patient is being admitted to hospital for further management. PAST MEDICAL HISTORY: As mentioned above in history of present illness. PAST SURGICAL HISTORY: 1. Coronary artery bypass graft surgery. 2. Cholecystectomy. 3. section. 4. Back surgery. 5. Hysterectomy. SOCIAL HISTORY: Denies drug use. Denies alcohol use. Smokes about half pack a day. FAMILY HISTORY: Reviewed. Mother had recent hospitalization for an MRSA infection. Otherwise reviewed and noncontributory. HOME MEDICATIONS: See home medication reconciliation form for updated medications. ALLERGIES: NO KNOWN ALLERGIES. REVIEW OF SYSTEMS: Review of 14 systems negative except what is mentioned in history of present illness. PHYSICAL EXAMINATION: GENERAL: The patient is awake, alert, in moderate distress. VITAL SIGNS: Blood pressure is 102/72, pulse is 67, temperature 97.6, oxygen saturation is 100% on room air. HEAD AND NECK: Normocephalic, atraumatic. NECK: Supple. No JVD. CHEST: Fair bilateral air entry. ABDOMEN: Distended, diffusely tender. Bowel sounds hypoactive. NEUROLOGIC: Awake, alert, oriented x3. No focal deficits. PSYCHIATRIC: Unable to assess. EXTREMITIES: No clubbing or cyanosis. LABORATORY DATA: As mentioned above in history of present illness. IMAGING STUDIES: As mentioned above in history of present illness. ASSESSMENT: 1. Acute abdominal pain. 2. Nausea and vomiting. 3. Diarrhea. 4. Suspected Clostridium difficile colitis? 5. Hypertension. 6. History of cerebrovascular accident. PLAN: 1. Admit. 2. IV fluid hydration. 3. Isolation precautions for now. 4. C. diff studies. 5. We will continue with the Flagyl for now, awaiting C. diff results. If positive, we will start on oral vancomycin. 6. IV fluid hydration. 7. Reconcile home medications. 8. DVT prophylaxis as appropriate. 9. GI was consulted by ED physician. 10. Expected length of stay, 2 midnights or more. Job ID: [id number]
[2020-02-19 06:09] LABS: Band 9 % (5-11); Lymphocytes 22 % (21-51); MDiff Complete? YES; Mean Corpuscular HGB CONC 33.1 g/dL (32.0-36.0); Mean Corpuscular Hemoglobin 36.9 pg (27.0-31.0); Mean Platelet Volume 6.8 fL (7.4-10.4); Monocytes 4 % (0-10); Neutrophil 65 % (42-75); Platelet Count 340 thou/uL (130-400); Platelet Morphology Comment Appears Adequate; RBC Distribution Width 11.8 % (11.5-14.5); Red Blood Cell (RBC) Count 2.99 mill/uL (4.20-5.40); White Blood Cell (WBC) Count 10.8 thou/uL (4.8-10.8)
[2020-02-19 06:20] LABS: ALT (SGPT) 16 U/L (8-55); AST (SGOT) 18 U/L (5-34); Albumin 3.2 g/dL (3.4-4.8); Alkaline Phosphatase 86 U/L (40-110); Anion Gap 12 mmol/L (10-20); BUN (Urea Nitrogen) 8 mg/dL (9.8-20.1); Bilirubin, Total 0.2 mg/dL (0.2-1.2); Calc. Creatinine Clearance 72 mL/min (70-130); Calcium 7.5 mg/dL (7.8-10.44); Carbon Dioxide 19 mmol/L (23-31); Chloride 112 mmol/L (98-107); Estimated GFR-MDRD 86; Globulin 2.1 g/dL (2.4-3.5); Glucose 95 mg/dL (80-115); Potassium 4.1 mmol/L (3.5-5.1); Protein, Total 5.3 g/dL (6.0-8.3); Sodium 139 mmol/L (136-145)
--- NOTE | 2020-02-19 08:04 | CT ---
PRELIMINARY REPORT/[facility]/EMERGENCY AFTER HOURS PROCEDURE: EXAM: CT Abdomen and Pelvis with Intravenous Contrast CLINICAL HISTORY: ER 18//PREVIOUS ON PACS//HAS BEEN HAVING ABD PAIN FOR SEVERAL WEEKS. HAS BEEN SEEING HER DOCTOR. PAIN GOT WORSE TODAY VOMITED X3. HASNT BEEN ABLE TO EAT OR DRINK. HAS A HX OF STROKES. TECHNIQUE: Axial computed tomography images of the abdomen and pelvis with intravenous contrast. CONTRAST: With; ISOVUE 370,100mL COMPARISON: None provided. FINDINGS: LUNG BASES: No basilar airspace consolidation or pleural effusion. Coronary artery disease. LIVER: The liver is enlarged measuring 18.5 cm in length. GALLBLADDER AND BILE DUCTS: Cholecystectomy clips in the gallbladder fossa. No ductal dilation. PANCREAS: Unremarkable. SPLEEN: Unremarkable. ADRENAL GLANDS: Unremarkable. KIDNEYS, URETERS, AND BLADDER: Unremarkable. No hydronephrosis or nephrolithiasis. No ureteral or bladder calculi. STOMACH AND BOWEL: Small hiatal hernia. Multiple mildly dilated loops of small bowel measuring up to 2.9 cm in diameter . No wall thickening. No CT evidence of colitis or acute diverticulitis. Colonic diverticulosis. APPENDIX: No CT evidence for appendicitis. PERITONEUM: No free fluid. No free air. LYMPH NODES: No lymphadenopathy. REPRODUCTIVE: Unremarkable as visualized. VASCULATURE: No aortic aneurysm. BONES: No fracture or suspicious osseous abnormality. Multilevel degenerative disc disease. Dextroscoliosi s of the lumbar spine. Grade 1 anterolisthesis of L4 and L5. Chronic compression fractures at L1, L 2, and L3. Right-sided L4 laminotomy. 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 Sternoto my wires. ABDOMINAL WALL AND SOFT TISSUES: Unremarkable. IMPRESSION: Multiple mildly dilated loops of small bowel which may represent an adynamic ileus or early/partial s mall bowel obstruction. An enteritis cannot be excluded. Clinical correlation is recommended. Colonic diverticulosis with no evidence of diverticulitis. Hepatomegaly. ELECTRONICALLY SIGNED BY: Ino Diop MD Feb 19, 2020 2:48:42 AM MSW This report is intended for review by the ordering physician only, in accordance of law. If you recei ve this report in error, please call [facility] at [phone]. FINAL REPORT EMERGENCY AFTER HOURS CT ABDOMEN AND PELVIS WITH CONTRAST: COMPARISON: 01/29/2020. FINDINGS/IMPRESSION: I agree with the findings and impression given in the preliminary report per [facility] physici an. 1. There are multiple dilated loops of small bowel consistent with either ileus or partial small bow el obstruction. No obvious transition point is seen in the abdomen. 2. Diverticulosis. 3. Chronic compression fractures and degenerative changes of the lumbar spine. POS: MARYA
[2020-02-19] MEDS: Famotidine/PF 20 mg/2ml Vial SLOW IVP SCH ×2 (08:07→20:09)
[2020-02-19] MEDS ORDERED: FLU VACC QS2020-21(6MOS UP)/PF 60 MCG/0.5 ML SYRINGE IM ONE (09:00)
[2020-02-19] MEDS ORDERED: Enoxaparin Sodium 40 MG/0.4 ML SYRINGE SC SCH (09:00)
[2020-02-19] MEDS ORDERED: Cyclobenzaprine 10 MG TAB PO PRN (13:35)
--- NOTE | 2020-02-19 13:41 | PDOC.HOSPP ---
- Subjective Encounter Date: 02/19/20 Encounter Time: 09:15 Subjective: no diarrhea from am, has given one stool sample so far, c.diff is -ve no nausea or vomiting will start oral diet has h/o HIV and take atripla she had post surgery f/u with for lumbar L4-S1 decompression done on 02/03. - Objective Vital Signs & Weight: Vital Signs (12 hours) Temp Pulse Resp BP Pulse Ox 02/19/20 07:29 97.9 F 75 16 103/66 98 02/19/20 04:33 98.2 F 71 16 96/60 95 02/19/20 01:45 97.9 F 73 15 116/71 100 Weight Weight 118 lb 1.6 oz Result Diagrams: 02/19/20 05:47 02/19/20 05:47 Hospitalist ROS - Medication Medications: Active Medications Generic Name Dose Route Start Last Admin Trade Name Freq PRN Reason Stop Dose Admin Acetaminophen 650 mg 02/18/20 23:56 02/19/20 10:14 Acetaminophen 325 Mg Tab PO 650 mg Q4H PRN Administration Headache/Fever/Mild Pain (1-3) Enoxaparin Sodium 40 mg 02/19/20 09:00 02/19/20 08:05 Enoxaparin Sodium 40 Mg/0.4 Ml Syringe SC 40 mg 0900 PROMISE Administration Famotidine 20 mg 02/19/20 09:00 02/19/20 08:07 Famotidine/Pf 20 Mg/2ml Vial SLOW IVP 20 mg Q12HR PROMISE Administration Metronidazole 500 mg/ Device 100 mls @ 100 mls/hr 02/19/20 01:00 02/19/20 08:07 IVPB 100 mls 0100,0900,1700 PROMISE Administration Potassium Chloride/Dextrose/Sod Cl 1,000 ml in 1,000 mls @ 100 mls/hr 02/19/20 00:00 02/19/20 10:57 D5 1/2 Ns W/10 Meq Kcl IV 1,000 mls .Q10H PROMISE Administration - Exam General Appearance: awake alert Eye: anicteric sclera ENT: normocephalic atraumatic, dry oral mucosa Neck: supple, no JVD Heart: RRR, no murmur Respiratory: no wheezes, no rales Gastrointestinal: soft, non-distended, normal bowel sounds, no guarding, no rigidity Gastrointestinal - other findings: mild periumbilical area tenderness, no rebound Extremities: no cyanosis, no edema Neurological: cranial nerve grossly intact, no focal deficits Psychiatric: normal affect, A&O x 3 Hosp A/P (1) Gastroenteritis Code(s): K52.9 - NONINFECTIVE GASTROENTERITIS AND COLITIS, UNSPECIFIED Status: Suspected (2) HIV (human immunodeficiency virus infection) Code(s): B20 - HUMAN IMMUNODEFICIENCY VIRUS [HIV] DISEASE Status: Chronic Qualifiers: HIV symptom status: asymptomatic Qualified Code(s): Z21 - Asymptomatic human immunodeficiency virus [HIV] infection status (3) Intractable nausea and vomiting Code(s): R11.2 - NAUSEA WITH VOMITING, UNSPECIFIED Status: Resolved (4) Moderate dehydration Code(s): E86.0 - DEHYDRATION Status: Acute (5) CAD (coronary artery disease) Code(s): I25.10 - ATHSCL HEART DISEASE OF [place] CORONARY ARTERY W/O ANG PCTRS Status: Chronic Qualifiers: Coronary Disease-Associated Artery/Lesion type: bypass graft [place] vs. transplanted heart: [place] heart Associated angina: without angina Qualified Code(s): I25.810 - Atherosclerosis of coronary artery bypass graft(s) without angina pectoris (6) H/O: CVA (cerebrovascular accident) Code(s): Z86.73 - PRSNL HX OF TIA (TIA), AND CEREB INFRC W/O RESID DEFICITS Status: Chronic (7) Chronic back pain Code(s): M54.9 - DORSALGIA, UNSPECIFIED; G89.29 - OTHER CHRONIC PAIN Status: Chronic Qualifiers: Back pain location: low back pain - Plan still hypotensive, continue iv hydration stool for cdiff is -ve, await stool culture will add cipro to flagyl home dose atripla, low dose lopressor, asp, plavix, gabapentin, lipitor. will f/u, CT abd results noted her previous CD 4 counts are high, unlikely to have opportunistic infections, consult
[2020-02-19 14:07] LABS: SARS-CoV-2 MS2 Positive; SARS-CoV-2 N Gene Negative; SARS-CoV-2 S Gene Negative; SARS-CoV-2 by NAA Not Detected (NotDetected); SARS-CoV-2 orf1ab Negative
[2020-02-19] MEDS ORDERED: TYLENOL PO PRN (16:37)
[2020-02-19] MEDS ORDERED: CODEINE PO PRN (16:37)
[2020-02-19] MEDS ORDERED: GoLYTELY 4,000 ml Bottle PO SCH (17:00)
[2020-02-19] MEDS: Sodium Chloride 0.9% 1,000 ML IV SCH (17:02)
[2020-02-19] MEDS: Acetaminophen/Codeine 30-300mg Tablet PO PRN (18:17)
--- NOTE | 2020-02-19 19:32 | CON ---
DATE OF CONSULTATION: 02/19/2020 CHIEF COMPLAINT: Abdominal pain. HISTORY OF PRESENT ILLNESS: Ms. Page presented to GI Clinic on 01/20/2020 for evaluation of rectal prolapse over the preceding months. She had back surgery and was treated with Tylenol No. 4 and was having constipation associated with that. When she was straining at bowel movement, she would prolapse the rectum down to the size of a plum. Her last colonoscopy was in the . She was advised to start scheduled MiraLAX and was referred to General Surgery for surgical correction of the prolapse. States after that she started passing her bowel movements more regularly and so she did not start the laxative. A couple of weeks ago, she started having left lower quadrant pain, which worsened last night. This is severe aching pain in the left lower quadrant, so she went to the emergency room for further care. A CT scan was performed, which showed dilation of the small bowel. She did vomit a couple of times prior to presenting to the emergency room last night or early this morning. CT scan showed some small bowel dilation, but no other focal findings. PAST MEDICAL HISTORY: HIV, stroke, coronary artery disease, H pylori, diverticulosis, hepatitis A, hyperlipidemia, hypertension, spinal stenosis. PAST SURGICAL HISTORY: Coronary artery bypass graft, coronary stent, cholecystectomy, hysterectomy, lysis of adhesions, appendectomy, , back surgery recently. FAMILY HISTORY: Negative for GI malignancies. SOCIAL HISTORY: No alcohol or drugs. She smokes half a pack a day. ALLERGIES: NO KNOWN DRUG ALLERGIES. MEDICATIONS: Prior to admission: 1. Atripla. 2. B12. 3. Plavix 75 mg daily. 4. Vitamin D. 5. Aspirin. 6. Atorvastatin. 7. Acetaminophen with codeine No. 4 four times daily. 8. Dicyclomine. 9. Cyclobenzaprine. 10. Gabapentin. 11. Lisinopril. 12. Metoprolol. REVIEW OF SYSTEMS: Negative x10 systems reviewed except as stated in history of present illness. She does get blood with the stool when she prolapses her rectum. PHYSICAL EXAMINATION: VITAL SIGNS: Temperature 97.9, pulse 75, blood pressure 103/66. GENERAL: She is in no acute distress. Alert and oriented x3. HEENT: Eyes have no scleral icterus. Oropharynx is clear without lesions. NECK: No cervical or supraclavicular lymphadenopathy. LUNGS: Clear to auscultation bilaterally. HEART: Regular rate and rhythm without murmur. ABDOMEN: Soft. Mild tenderness in the left lower quadrant without guarding. Bowel sounds are present. EXTREMITIES: No lower extremity edema. NEUROLOGIC: Cranial nerves are grossly intact. LABORATORY DATA: White blood cell count 10.8, down from 17.8 last night; hemoglobin 11.0; platelets 340. Creatinine 0.69, bilirubin 0.2, AST 18, ALT 16, albumin 3.2, lipase 24. IMPRESSION: 1. Left lower quadrant abdominal pain. CT scan shows no obvious source for the pain. She does have some small bowel dilation and came in with vomiting and could have had an ileus or partially obstructing process. However, after presenting to the ER, she started passing multiple episodes of liquidy diarrhea and she has had no vomiting all day today. She could have ischemic colitis given her frequent rectal prolapse. She will need to follow through with the endoscopy as previously planned. 2. Rectal prolapse. 3. Acute diarrhea. She had stool sent for Clostridium difficile, which was negative. I will send for culture and ova and parasite as well now. 4. Nausea and vomiting, improved. RECOMMENDATIONS: 1. Send additional stool studies. 2. EGD and colonoscopy tomorrow. 3. She has planned to undergo a surgical correction of the rectal prolapse in the future. Job ID: [id number] [facility]
[2020-02-19] MEDS: Ondansetron PF 4 MG/2 ML Vial IVP PRN (20:05)
[2020-02-19] MEDS: Metoprolol Tartrate 25 MG TAB PO SCH (20:07)
[2020-02-19] MEDS: Gabapentin 300 MG CAP PO SCH (20:07)
[2020-02-19] MEDS: Atorvastatin Calcium 40 MG TAB PO SCH (20:07)
[2020-02-19] MEDS ORDERED: EMTRICITAB PO SCH (21:00)
[2020-02-19] MEDS ORDERED: EFAVIRENZ PO SCH (21:00)
[2020-02-19] MEDS ORDERED: TENOFOVIR PO SCH (21:00)
[2020-02-19] MEDS ORDERED: [UNRECOGNIZED DRUG - OTHER] PO SCH (21:00)
[2020-02-19] MEDS: Emtricitabine/Tenofovir 200-300 MG TAB PO SCH (21:16)
[2020-02-20] MEDS: Acetaminophen/Codeine 30-300mg Tablet PO PRN ×3 (00:15→20:28)
[2020-02-20] MEDS: metroNIDAZOLE 500 MG in Premix Bag 1 BAG IVPB SCH ×3 (00:16→18:22)
[2020-02-20] MEDS: D5 1/2 NS w/10 mEq KCl 1,000 ML/1,000 ML BAG IV SCH ×3 (00:17→16:14)
[2020-02-20] MEDS: Sodium Chloride 0.9% 1,000 ML IV SCH ×4 (02:28→20:00)
[2020-02-20] MEDS: Cyanocobalamin (Vitamin B-12) 1,000 MCG TAB PO SCH (08:21)
[2020-02-20] MEDS: Cholecalciferol 1,000 UNITS (25 MCG) TAB PO SCH (08:21)
[2020-02-20] MEDS: Gabapentin 300 MG CAP PO SCH ×3 (08:21→20:25)
[2020-02-20] MEDS: Metoprolol Tartrate 25 MG TAB PO SCH ×2 (08:21→20:28)
[2020-02-20] MEDS: Aspirin 325 mg Enteric Coated Tablet PO SCH (08:21)
[2020-02-20] MEDS: Famotidine/PF 20 mg/2ml Vial SLOW IVP SCH ×2 (08:23→20:32)
[2020-02-20] MEDS ORDERED: Clopidogrel Bisulfate 75 MG TAB PO SCH (09:00)
[2020-02-20] MEDS: Ondansetron PF 4 MG/2 ML Vial IVP PRN ×2 (11:04→23:38)
[2020-02-20] MEDS ORDERED: Lidocaine 1% PF 5 ML VIAL ONE (12:45)
[2020-02-20] MEDS ORDERED: PROPOFOL 200 MG/20 ML VIAL ONE (12:45)
--- NOTE | 2020-02-20 14:17 | PDOC.HOSPP ---
- Subjective Encounter Date: 02/20/20 Encounter Time: 09:00 Subjective: no nausea, finished her golytely prep and says she has cleaned out well no abd pain - Objective Vital Signs & Weight: Vital Signs (12 hours) Temp Pulse Resp BP Pulse Ox 02/20/20 12:28 97.7 F 65 16 144/82 H 99 02/20/20 11:00 97.4 F L 59 L 18 158/77 H 95 02/20/20 07:40 98.0 F 74 16 124/80 95 Weight Admit Weight 118 lb 1.6 oz Weight 118 lb 1.6 oz Result Diagrams: 02/19/20 05:47 02/19/20 05:47 Hospitalist ROS - Medication Medications: Active Medications Generic Name Dose Route Start Last Admin Trade Name Freq PRN Reason Stop Dose Admin Acetaminophen 650 mg 02/18/20 23:56 02/19/20 10:14 Acetaminophen 325 Mg Tab PO 650 mg Q4H PRN Administration Headache/Fever/Mild Pain (1-3) Acetaminophen/Codeine Phosphate 1 tab 02/19/20 17:59 02/20/20 08:22 Acetaminophen/Codeine 30-300mg Tablet PO 1 tab Q6H PRN Administration Pain 4-6 Aspirin 325 mg 02/20/20 09:00 02/20/20 08:21 Aspirin 325 Mg Enteric Coated Tablet PO Not Given DAILY PROMISE Atorvastatin Calcium 80 mg 02/19/20 21:00 02/19/20 20:07 Atorvastatin Calcium 40 Mg Tab PO 80 mg HS PROMISE Administration Cholecalciferol 1,000 units 02/20/20 09:00 02/20/20 08:21 Cholecalciferol 1,000 Units (25 Mcg) Tab PO 1,000 units DAILY PROMISE Administration Clopidogrel Bisulfate 75 mg 02/20/20 09:00 02/20/20 08:21 Clopidogrel Bisulfate 75 Mg Tab PO 75 mg DAILY PROMISE Administration Cyanocobalamin 1,000 mcg 02/20/20 09:00 02/20/20 08:21 Cyanocobalamin (Vitamin B-12) 1,000 Mcg Tab PO 1,000 mcg DAILY PROMISE Administration Efavirenz 600 mg 02/19/20 21:00 02/19/20 20:09 Efavirenz 200 Mg Cap PO 600 mg 2100 PROMISE Administration Emtricitabine/Tenofovir 1 tab 02/19/20 21:00 02/19/20 21:16 Emtricitabine/Tenofovir 200-300 Mg Tab PO 1 tab 2100 PROMISE Administration Enoxaparin Sodium 40 mg 02/19/20 09:00 02/19/20 08:05 Enoxaparin Sodium 40 Mg/0.4 Ml Syringe SC 40 mg 0900 PROMISE Administration Famotidine 20 mg 02/19/20 09:00 02/20/20 08:23 Famotidine/Pf 20 Mg/2ml Vial SLOW IVP 20 mg Q12HR PROMISE Administration Gabapentin 600 mg 02/19/20 21:00 02/20/20 08:21 Gabapentin 300 Mg Cap PO 600 mg TID PROMISE Administration Metronidazole 500 mg/ Device 100 mls @ 100 mls/hr 02/19/20 01:00 02/20/20 08:23 IVPB 100 mls 0100,0900,1700 PROMISE Administration Potassium Chloride/Dextrose/Sod Cl 1,000 ml in 1,000 mls @ 100 mls/hr 02/19/20 00:00 02/20/20 06:24 D5 1/2 Ns W/10 Meq Kcl IV Not Given .Q10H PROMISE Sodium Chloride 1,000 mls @ 100 mls/hr 02/19/20 13:45 02/20/20 08:29 Normal Saline 0.9% IV Not Given .Q10H PROMISE Ciprofloxacin/Dextrose 400 mg/ 200 mls @ 200 mls/hr 02/19/20 21:00 02/20/20 08:23 Device IVPB 200 mls Q12HR PROMISE Administration Metoprolol Tartrate 25 mg 02/19/20 21:00 02/20/20 08:21 Metoprolol Tartrate 25 Mg Tab PO 25 mg BID PROMISE Administration Ondansetron HCl 4 mg 02/18/20 23:56 02/20/20 11:04 Ondansetron Pf 4 Mg/2 Ml Vial IVP 4 mg Q6H PRN Administration Nausea/Vomiting Sodium Chloride 10 ml 02/19/20 21:00 02/20/20 08:24 Flush - Normal Saline 10 Ml Syringe IVF Not Given Q12HR PROMISE - Exam General Appearance: awake alert Eye: PERRL, anicteric sclera ENT: no oropharyngeal lesions, moist mucosa Neck: supple, no JVD Heart: RRR, no murmur Respiratory: no wheezes, no rales Gastrointestinal: soft, non-tender, non-distended, normal bowel sounds, no guarding, no rigidity Extremities: no cyanosis, no edema Neurological: cranial nerve grossly intact, no focal deficits Psychiatric: normal affect, A&O x 3 Hosp A/P (1) Gastroenteritis Code(s): K52.9 - NONINFECTIVE GASTROENTERITIS AND COLITIS, UNSPECIFIED Status: Suspected (2) HIV (human immunodeficiency virus infection) Code(s): B20 - HUMAN IMMUNODEFICIENCY VIRUS [HIV] DISEASE Status: Chronic Qualifiers: HIV symptom status: asymptomatic Qualified Code(s): Z21 - Asymptomatic human immunodeficiency virus [HIV] infection status (3) Intractable nausea and vomiting Code(s): R11.2 - NAUSEA WITH VOMITING, UNSPECIFIED Status: Resolved (4) Moderate dehydration Code(s): E86.0 - DEHYDRATION Status: Resolved (5) CAD (coronary artery disease) Code(s): I25.10 - ATHSCL HEART DISEASE OF [place] CORONARY ARTERY W/O ANG PCTRS Status: Chronic Qualifiers: Coronary Disease-Associated Artery/Lesion type: bypass graft [place] vs. transplanted heart: [place] heart Associated angina: without angina Qualified Code(s): I25.810 - Atherosclerosis of coronary artery bypass graft(s) without angina pectoris (6) H/O: CVA (cerebrovascular accident) Code(s): Z86.73 - PRSNL HX OF TIA (TIA), AND CEREB INFRC W/O RESID DEFICITS Status: Chronic (7) Chronic back pain Code(s): M54.9 - DORSALGIA, UNSPECIFIED; G89.29 - OTHER CHRONIC PAIN Status: Chronic Qualifiers: Back pain location: low back pain - Plan hypotension and dehydration have resolved for colonoscopy and egd today, if -ve may dc home, d/w patient. stool for cdiff is -ve, shiga toxin is -ve on cipro and flagyl home dose atripla, low dose lopressor, asp, plavix, gabapentin, lipitor. her previous CD 4 counts are high, unlikely to have opportunistic infections, consult Dr.Lemos tristan, may dc home if cleared by GI today
[2020-02-20 16:15] LABS: %CD4 (Helper/Inducer) 42.2 % (30.8-58.5); Absolute CD4 802 /uL (359-1519); Lymphocytes/Gated Cell Count 1.9 x10E3/uL (0.7-3.1); Total Lymphocyte 28 % (Not Estab.); WBC Total Count 6.9 x10E3/uL (3.4-10.8)
--- NOTE | 2020-02-20 16:35 | CON ---
DATE OF CONSULTATION: 02/20/2020 REASON FOR CONSULTATION: Abdominal complaint and diarrhea in the setting of HIV seropositive state and vascular disease. 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 Apparently, she acquired it in the hospital from a patient. She has been on Atripla from the beginning of her infection with excellent compliance with her medication and excellent virologic control reportedly. She also has a history of CVA, coronary artery disease, and hypertension. Has had bypass graft surgery in the past. For the past few months, she has had abdominal pain, nausea and vomiting usually, sometimes postprandial, sometimes she will stay 2 or 3 days without eating because of fear of eliciting pain. She has lost weight associated with it. She has had some diarrhea intermittently. No fever. No genitourinary symptoms. Some back pain. No joint symptoms or skin disorder. MEDICAL HISTORY: 1. CVA. 2. Vascular disease with prior bypass graft surgery. 3. Hypertension. 4. Cholecystectomy. 5. . 6. Hysterectomy. 7. Laminectomy. 8. 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 SOCIAL HISTORY: Never used alcohol, but smokes daily half a pack. ALLERGIES: NONE. CURRENT MEDICATIONS: 1. Tylenol No. 3. 2. Ecotrin. 3. Vitamin D. 4. Cipro. 5. Plavix. 6. Sustiva. 7. Truvada. 8. Gabapentin. 9. Flagyl. 10. Ondansetron. FAMILY HISTORY: Noncontributory. PHYSICAL EXAMINATION: VITAL SIGNS: Temperature is normal, blood pressure 140/80, heart rate 65, respiratory rate 16, and O2 saturation 99. GENERAL: Appears in no distress. She is oriented. SKIN: No abnormalities noted. Peripheral IV access. Voiding on her own. No lymphadenopathy. HEENT: Ocular movements conjugate. Oral cavity normal. LUNGS: Symmetric, clear breath sounds. HEART: S1 and S2. Regular rate. No S3 or S4. ABDOMEN: Soft. Mild tenderness in the lower segments. No bladder distention. EXTREMITIES: No edema. No joint inflammatory activity. NEUROLOGIC: Nonfocal. LABORATORY DATA: White cell count 17.8 on arrival and now 10.6, hemoglobin 14.3 and 11, MCV 110, and platelets 449 and now 340. Sodium 139 and creatinine 0.95. Liver profile normal; alkaline phosphatase 121, albumin 4.6. SARS-CoV-2 PCR not detected. Abdomen and pelvis CT; multiple dilated loops of small bowel, consistent with either ileus or partial small-bowel obstruction, but no transition point was seen, diverticulosis, compression fractures, degenerative changes, the lungs are clear at the bases that were visualized. No lymph nodes were seen. No appendicitis. Adrenal glands are good. Spleen was normal. Pancreas normal. Liver was enlarged with 18.5 cm in length. ASSESSMENT: 1. Longstanding human immunodeficiency virus infection. Actually with excellent control. Reportedly suppressed viral load. Does not recall her CD4 cell count. 2. Chronic abdominal pain, sometimes postprandial, associated with some diarrhea, nausea, vomiting, and some weight loss. 3. Ileus or dilated loops of small bowel, but no transition point. 4. Negative stool evaluation. DISCUSSION: The differential diagnosis includes HIV associated causes of gastrointestinal symptoms including opportunistic infections, some malignancies, particularly lymphoma, parasitic diseases are within the realm of possibilities including Giardia and Cryptosporidium, Cyclospora, enterocytozoon, Microsporidia, Isospora. Opportunistic fungal and mycobacterial infections are possible, Treponema pallidum infection. Acute bacterial infections are felt to be less likely. Malignancy also is felt to be less likely. In addition, [id number] causes of chronic abdominal pain and diarrhea include vascular disorder with vascular insufficiency due to atherosclerosis and gastrointestinal ischemia. Inflammatory bowel disease appears to be less likely. Medication induced is less likely as well. I looked at her list and nothing really pops out as associated with her symptoms. We will go ahead and repeat her CD4 cell count and viral load. Submit QuantiFERON, histoplasma antigen, cryptococcus antigen, and depending on CD4, we will also submit CMV DNA PCR. She may need repeat stool studies depending on the colonoscopy and EGD findings. Job ID: [id number] [facility]
[2020-02-20] MEDS ORDERED: Promethazine HCl 25 MG/ML VIAL SLOW IVP PRN (17:37)
[2020-02-20] MEDS ORDERED: Promethazine HCl 25 MG/ML VIAL IM PRN (17:37)
[2020-02-20] MEDS ORDERED: Ondansetron HCl/PF 4 MG/2 ML Vial IVP PRN (17:37)
[2020-02-20 20:18] LABS: Syphilis Antibody Nonreactive (Nonreactive); Syphilis Antibody Index 0.03 S/CO (<1.00 Non-Reactive)
[2020-02-20] MEDS: Atorvastatin Calcium 40 MG TAB PO SCH (20:24)
[2020-02-20] MEDS: Emtricitabine/Tenofovir 200-300 MG TAB PO SCH (22:16)
[2020-02-21] MEDS: metroNIDAZOLE 500 MG in Premix Bag 1 BAG IVPB SCH ×3 (01:50→16:02)
[2020-02-21] MEDS: Acetaminophen/Codeine 30-300mg Tablet PO PRN ×3 (01:53→19:03)
[2020-02-21] MEDS: Sodium Chloride 0.9% 1,000 ML IV SCH (05:45)
[2020-02-21] MEDS: Aspirin 325 mg Enteric Coated Tablet PO SCH (08:39)
[2020-02-21] MEDS ORDERED: Senokot S 8.6-50 MG TAB PO PRN (08:39)
[2020-02-21] MEDS ORDERED: hydrALAZINE 20 MG/ML VIAL SLOW IVP PRN (08:39)
[2020-02-21] MEDS ORDERED: HYDROcodone/Acetaminophen 5/325 mg Tablet PO PRN (08:39)
[2020-02-21] MEDS ORDERED: Loratadine 10 MG TAB PO PRN (08:39)
[2020-02-21] MEDS: Cholecalciferol 1,000 UNITS (25 MCG) TAB PO SCH (08:39)
[2020-02-21] MEDS ORDERED: Zolpidem Tartrate 5 MG TAB PO PRN (08:39)
[2020-02-21] MEDS: Metoprolol Tartrate 25 MG TAB PO SCH ×2 (08:39→20:43)
[2020-02-21] MEDS ORDERED: Cepastat Lozenges 1 LOZ PO PRN (08:39)
[2020-02-21] MEDS ORDERED: Diabetic Tussin 200 MG/10 ML UDCUP PO PRN (08:39)
[2020-02-21] MEDS: Cyanocobalamin (Vitamin B-12) 1,000 MCG TAB PO SCH (08:39)
[2020-02-21] MEDS ORDERED: Sodium Chloride 0.65% Nasal 44 ML BOT EA NARE PRN (08:39)
[2020-02-21] MEDS: Gabapentin 300 MG CAP PO SCH ×3 (08:40→20:41)
[2020-02-21] MEDS: Famotidine/PF 20 mg/2ml Vial SLOW IVP SCH ×2 (08:40→21:15)
[2020-02-21] MEDS ORDERED: Dicyclomine 20 MG TAB PO PRN (08:40)
[2020-02-21] MEDS: Lisinopril 20 MG TAB PO SCH (09:07)
--- NOTE | 2020-02-21 11:56 | PDOC.HOSPP ---
- Subjective Encounter Date: 02/21/20 Encounter Time: 09:45 Subjective: Patient seen and examined bedside today, patient does not have any further diarrhea, denies any melena or hematochezia, she has vague lower abdominal discomfort but no abdominal pain or peritoneal sign, no fever or chills - Objective Vital Signs & Weight: Vital Signs (12 hours) Temp Pulse Resp BP Pulse Ox 02/21/20 08:00 97.7 F 67 17 153/76 H 98 02/21/20 04:00 97.9 F 64 20 152/78 H 98 02/21/20 00:00 98.1 F 68 20 115/70 98 Weight Admit Weight 118 lb 1.6 oz Weight 118 lb 1.6 oz Result Diagrams: 02/19/20 05:47 02/19/20 05:47 Radiology Reviewed by me: Yes Hospitalist ROS - Review of Systems Constitutional: reports: weakness. denies: fever, chills, sweats, malaise, other ENT: denies: ear pain, ear discharge, nose pain, nose discharge, nose congestion, mouth pain, mouth swelling, throat pain, throat swelling, other Respiratory: denies: cough, dry, shortness of breath, hemoptysis, SOB with excertion, pleuritic pain, sputum, wheezing, other Cardiovascular: denies: chest pain, palpitations, orthopnea, paroxysmal noc. dyspnea, edema, light headedness, other Gastrointestinal: denies: nausea, vomiting, abdominal pain, diarrhea, constipation, melena, hematochezia, other Genitourinary: denies: dysuria, frequency, incontinence, hematuria, retention, other Musculoskeletal: denies: neck pain, shoulder pain, arm pain, back pain, hand pain, leg pain, foot pain, other Skin: denies: rash, lesions, [place], bruising, other - Medication Medications: Active Medications Generic Name Dose Route Start Last Admin Trade Name Freq PRN Reason Stop Dose Admin Acetaminophen 650 mg 02/18/20 23:56 02/19/20 10:14 Acetaminophen 325 Mg Tab PO 650 mg Q4H PRN Administration Headache/Fever/Mild Pain (1-3) Acetaminophen/Codeine Phosphate 1 tab 02/19/20 17:59 02/21/20 08:45 Acetaminophen/Codeine 30-300mg Tablet PO 1 tab Q6H PRN Administration Pain 4-6 Aspirin 325 mg 02/20/20 09:00 02/21/20 08:39 Aspirin 325 Mg Enteric Coated Tablet PO 325 mg DAILY PROMISE Administration Atorvastatin Calcium 80 mg 02/19/20 21:00 02/20/20 20:24 Atorvastatin Calcium 40 Mg Tab PO 80 mg HS PROMISE Administration Cholecalciferol 1,000 units 02/20/20 09:00 02/21/20 08:39 Cholecalciferol 1,000 Units (25 Mcg) Tab PO 1,000 units DAILY PROMISE Administration Clopidogrel Bisulfate 75 mg 02/20/20 09:00 02/20/20 08:21 Clopidogrel Bisulfate 75 Mg Tab PO 75 mg DAILY PROMISE Administration Cyanocobalamin 1,000 mcg 02/20/20 09:00 02/21/20 08:39 Cyanocobalamin (Vitamin B-12) 1,000 Mcg Tab PO 1,000 mcg DAILY PROMISE Administration Efavirenz 600 mg 02/19/20 21:00 02/20/20 20:31 Efavirenz 200 Mg Cap PO 600 mg 2100 PROMISE Administration Emtricitabine/Tenofovir 1 tab 02/19/20 21:00 02/20/20 22:16 Emtricitabine/Tenofovir 200-300 Mg Tab PO 1 tab 2100 PROMISE Administration Famotidine 20 mg 02/19/20 09:00 02/21/20 08:40 Famotidine/Pf 20 Mg/2ml Vial SLOW IVP 20 mg Q12HR PROMISE Administration Gabapentin 600 mg 02/19/20 21:00 02/21/20 08:40 Gabapentin 300 Mg Cap PO 600 mg TID PROMISE Administration Metronidazole 500 mg/ Device 100 mls @ 100 mls/hr 02/19/20 01:00 02/21/20 0 8:41 IVPB 100 mls 0100,0900,1700 PROMISE Administration Ciprofloxacin/Dextrose 400 mg/ 200 mls @ 200 mls/hr 02/19/20 21:00 02/21/20 08:40 Device IVPB 200 mls Q12HR PROMISE Administration Lisinopril 20 mg 02/21/20 09:00 02/21/20 09:07 Lisinopril 20 Mg Tab PO 20 mg DAILY PROMISE Administration Metoprolol Tartrate 25 mg 02/19/20 21:00 02/21/20 08:39 Metoprolol Tartrate 25 Mg Tab PO 25 mg BID PROMISE Administration Ondansetron HCl 4 mg 02/18/20 23:56 02/20/20 23:38 Ondansetron Pf 4 Mg/2 Ml Vial IVP 4 mg Q6H PRN Administration Nausea/Vomiting Sodium Chloride 10 ml 02/19/20 21:00 02/21/20 08:41 Flush - Normal Saline 10 Ml Syringe IVF 10 ml Q12HR PROMISE Administration - Exam General Appearance: NAD, awake alert Eye: PERRL, anicteric sclera ENT: normocephalic atraumatic, no oropharyngeal lesions Neck: supple, symmetric, no JVD, no thyromegaly Heart: RRR, no murmur, no gallops, no rubs Respiratory: no wheezes, no rales, no ronchi Gastrointestinal: soft, non-tender, non-distended, normal bowel sounds Extremities: no cyanosis, no clubbing, no edema Skin: normal turgor, no lesions Neurological: no focal deficits Musculoskeletal: normal tone, normal strength, no muscle wasting Psychiatric: normal affect, normal behavior, A&O x 3 Hosp A/P (1) CAD (coronary artery disease) Code(s): I25.10 - ATHSCL HEART DISEASE OF [place] CORONARY ARTERY W/O ANG PCTRS Status: Chronic Qualifiers: Coronary Disease-Associated Artery/Lesion type: bypass graft [place] vs. transplanted heart: [place] heart Associated angina: without angina Qualified Code(s): I25.810 - Atherosclerosis of coronary artery bypass graft(s) without a ngina pectoris (2) Chronic back pain Code(s): M54.9 - DORSALGIA, UNSPECIFIED; G89.29 - OTHER CHRONIC PAIN Status: Chronic Qualifiers: Back pain location: low back pain (3) H/O: CVA (cerebrovascular accident) Code(s): Z86.73 - PRSNL HX OF TIA (TIA), AND CEREB INFRC W/O RESID DEFICITS Status: Chronic (4) HIV (human immunodeficiency virus infection) Code(s): B20 - HUMAN IMMUNODEFICIENCY VIRUS [HIV] DISEASE Status: Chronic Qualifiers: HIV symptom status: asymptomatic Qualified Code(s): Z21 - Asymptomatic human immunodeficiency virus [HIV] infection status (5) Gastroenteritis Code(s): K52.9 - NONINFECTIVE GASTROENTERITIS AND COLITIS, UNSPECIFIED Status: Suspected (6) Intractable nausea and vomiting Code(s): R11.2 - NAUSEA WITH VOMITING, UNSPECIFIED Status: Resolved (7) Moderate dehydration Code(s): E86.0 - DEHYDRATION Status: Resolved - Plan old records reviewed/req, continue antibiotics Continue empiric Cipro and Flagyl Dr. Gagnon recommendation appreciated S/p colonoscopy and polypectomy We will repeat labs tomorrow Ambulate as tolerated Medication reviewed and continued by symptomatic and supportive care Discontinue IV fluid Diet as tolerated Restart her lisinopril for elevated blood pressure
[2020-02-21] MEDS: Ondansetron PF 4 MG/2 ML Vial IVP PRN (11:58)
--- NOTE | 2020-02-21 14:10 | PRG ---
DATE OF SERVICE: 02/21/2020 This is a cross coverage for Dr. John Ho. SUBJECTIVE: This is a 60-year-old female, hospitalized with abdominal pain and diarrhea. The patient has history of rectal prolapse and is up to see Dr. Sumner for surgery. The patient underwent EGD yesterday, which revealed no pathology. She underwent colonoscopy . She had done well overnight. She is on mechanical soft diet. No abdominal pain. No nausea or vomiting. She was taking clopidogrel . She offers no complaints. OBJECTIVE: VITAL SIGNS: Afebrile. Pulse 67, blood pressure 153/76. CARDIOVASCULAR: Normal heart sounds. LUNGS: Clear to auscultation. ABDOMEN: Soft. No organomegaly. No tenderness. No masses. RECOMMENDATIONS: 1. Continue diet as tolerated. 2. From GI standpoint, she can be discharged home tomorrow on ciprofloxacin 500 mg p.o. twice a day for 7 days with metronidazole 500 mg 3 times a day for 7 days. She will go back to see Dr. John Ho as outpatient. Job ID: [id number]
--- NOTE | 2020-02-21 15:34 | EKG ---
Test Reason : Blood Pressure : / mmHG Vent. Rate : 071 BPM Atrial Rate : 071 BPM P-R Int : 120 ms QRS Dur : 086 ms QT Int : 444 ms P-R-T Axes : 049 -42 078 degrees QTc Int : 482 ms Normal sinus rhythm Left axis deviation Left ventricular hypertrophy with repolarization abnormality Abnormal ECG Confirmed by KI CANALES, CHRISTY Watkins ([id number]), mapping editor NAYAN VERMA ([id number]) on 02/21/2020 3:34:44 PM Referred By: Confirmed By:CHRISTY EMERSON MD
[2020-02-21] MEDS: Atorvastatin Calcium 40 MG TAB PO SCH (20:42)
[2020-02-21] MEDS ORDERED: ATRIPLA PO SCH (21:00)
[2020-02-22] MEDS: metroNIDAZOLE 500 MG in Premix Bag 1 BAG IVPB SCH ×2 (01:14→09:30)
[2020-02-22] MEDS: Loperamide HCl 2 MG CAP PO PRN ×3 (06:57→11:12)
[2020-02-22] MEDS: Acetaminophen/Codeine 30-300mg Tablet PO PRN (06:59)
[2020-02-22] MEDS: Aspirin 325 mg Enteric Coated Tablet PO SCH (09:27)
[2020-02-22] MEDS: Gabapentin 300 MG CAP PO SCH (09:28)
[2020-02-22] MEDS: Cyanocobalamin (Vitamin B-12) 1,000 MCG TAB PO SCH (09:28)
[2020-02-22] MEDS: Cholecalciferol 1,000 UNITS (25 MCG) TAB PO SCH (09:29)
[2020-02-22] MEDS: Lisinopril 20 MG TAB PO SCH (09:29)
[2020-02-22] MEDS: Metoprolol Tartrate 25 MG TAB PO SCH (09:30)
[2020-02-22] MEDS: Famotidine/PF 20 mg/2ml Vial SLOW IVP SCH (09:30)
--- NOTE | 2020-02-22 11:47 | PDOC.DS.DS ---
Provider - Provider Date of Admission: 02/19/20 14:04 Admitting Provider: Samuel Londono MD Consultations: Gastroentrology, Infectious Disease Primary Care Physician: OUT OF TOWN Course - Hospital Course Hospital Course: 60-year-old female who has past medical history of coronary artery disease, hypertension, HIV, history history of CVA who presented to emergency room with a complaint of nausea vomiting diarrhea. The emergency room patient was found with elevated WBC count, she had elevated lactic acid, CT brain was negative for any acute intracranial process but CT abdomen and pelvis showed multiple dilated loops of small bowel suspicious for ileus. Patient was also found with the diverticulosis and chronic compression fracture and degenerative changes of the lumbar spine. Patient was admitted in the hospital, she was evaluated by gastroenterology and infectious disease. Her CD4 count was excellent, patient had a stool work-up for infection which came back negative. Gastroenterology recommended Cipro and Flagyl upon discharge for 7 more days. P brittany will continue all her previous medication upon discharge. Patient is completely asymptomatic. She wants to go home. Patient seen and examined bedside today. Resuscitation Status: 02/18/20 23:56 Resuscitation Status Routine Resuscitation Status: FULL: Full Resuscitation - Labs Lab Results: 02/19/20 05:47 02/19/20 05:47 Microbiology - Entire Visit 02/19/20 22:00 Stool - Liquid Stool Culture - Final 02/18/20 23:42 Venous blood - Left Arm Blood Culture - Preliminary NO GROWTH AT 48 HOURS 02/18/20 23:48 Venous blood - Right Hand Blood Culture - Preliminary NO GROWTH AT 48 HOURS 02/19/20 22:00 Stool - Liquid Campylobacter Antigen Assay - Final 02/19/20 22:00 Stool - Liquid Shiga Toxin Test - Final 02/19/20 22:56 Stool - Loose Escherichia coli 0157 Culture - Final 02/19/20 00:05 Stool - Pending C. difficile GDH Antigen & Toxins - Final - Physical Exam Vitals: Vital Signs (12 hours) Temp Pulse Resp BP BP Pulse Ox 02/22/20 11:14 98.1 F 66 16 149/80 H 97 02/22/20 04:00 97.9 F 74 16 119/67 94 L 02/22/20 00:00 97.5 F L 63 16 129/73 98 Weight Admit Weight 118 lb 1.6 oz Weight 118 lb 1.6 oz Physical Exam: The patient was seen and examined on the day of discharge. General patient is currently alert and awake no acute distress Head normocephalic atraumatic Neck supple no JVD no meningeal signs of irritation Lungs clear to auscultation without any rhonchi rales Cardiac S1-S2 regular, no murmur no gallop no rub Abdomen soft, bowel sounds present, nontender nondistended no organomegaly no mass Extremities no edema Neurologic nonfocal examination Problem - Problem (1) CAD (coronary artery disease) Code(s): I25.10 - ATHSCL HEART DISEASE OF [place] CORONARY ARTERY W/O ANG PCTRS Status: Chronic Qualifiers: Coronary Disease-Associated Artery/Lesion type: bypass graft [place] vs. transplanted heart: [place] heart Associated angina: without angina Qualified Code(s): I25.810 - Atherosclerosis of coronary artery bypass graft(s) without angina pectoris (2) Chronic back pain Code(s): M54.9 - DORSALGIA, UNSPECIFIED; G89.29 - OTHER CHRONIC PAIN Status: Chronic Qualifiers: Back pain location: low back pain (3) H/O: CVA (cerebrovascular accident) Code(s): Z86.73 - PRSNL HX OF TIA (TIA), AND CEREB INFRC W/O RESID DEFICITS Status: Chronic (4) HIV (human immunodeficiency virus infection) Code(s): B20 - HUMAN IMMUNODEFICIENCY VIRUS [HIV] DISEASE Status: Chronic Qualifiers: HIV symptom status: asymptomatic Qualified Code(s): Z21 - Asymptomatic human immunodeficiency virus [HIV] infection status (5) Gastroenteritis Code(s): K52.9 - NONINFECTIVE GASTROENTERITIS AND COLITIS, UNSPECIFIED Status: Suspected (6) Intractable nausea and vomiting Code(s): R11.2 - NAUSEA WITH VOMITING, UNSPECIFIED Status: Resolved (7) Moderate dehydration Code(s): E86.0 - DEHYDRATION Status: Resolved Plan - Discharge Medications Prescriptions: Ciprofloxacin [Cipro] 500 mg PO Q12HR #14 tab metroNIDAZOLE [Flagyl] 500 mg PO TID #21 tab Saccharomyces boulardii [Florastor] 250 mg PO DAILY #7 cap Home Medications: Medication Instructions Recorded Confirmed Type Aspirin [Ecotrin Regular Strength] 325 mg PO DAILY 05/02/19 02/19/20 History Atorvastatin Calcium [Lipitor] 80 mg PO HS 05/02/19 02/19/20 History Cholecalciferol (Vitamin D3) 1,000 unit PO DAILY 05/02/19 02/19/20 History [Vitamin D] Clopidogrel Bisulfate [Plavix] 75 mg PO DAILY 05/02/19 02/19/20 History Cyanocobalamin (Vitamin B-12) 1,000 mcg PO DAILY 05/02/19 02/19/20 History [Vitamin B-12] Cyclobenzaprine [Flexeril] 10 mg PO BID PRN 05/02/19 02/19/20 History Dicyclomine [Bentyl] 20 mg PO TID PRN 05/02/19 02/19/20 History Efavirenz/Emtricitab/Tenofovir 1 each PO HS 05/02/19 02/19/20 History [Atripla Tablet] Gabapentin 600 mg PO TID 05/02/19 02/19/20 History Lisinopril 20 mg PO DAILY 05/02/19 02/19/20 History Metoprolol Succinate [Toprol XL] 100 mg PO BID 05/02/19 02/19/20 History Acetaminophen With Codeine 1 tab PO QID 02/03/20 02/19/20 History [Acetaminophen/Codeine #4] Ciprofloxacin [Cipro] 500 mg PO Q12HR #14 tab 02/22/20 Rx Saccharomyces boulardii [Florastor] 250 mg PO DAILY #7 cap 02/22/20 Rx metroNIDAZOLE [Flagyl] 500 mg PO TID #21 tab 02/22/20 Rx Allergies: No Known Drug Allergies Allergy (Verified 02/03/20 11:54) - Discharge Instructions Activity:: Activity as Tolerated Nourishment:: Heart Healthy Diet Therapies:: Not Applicable Equipment/Supplies:: Not Applicable IV Therapy:: Not Applicable - Follow up Plan Referrals: [facility] PHYSICIAN,OUT OF [Primary Care Provider] - Disposition: HOME Quality - Care Measures CORE MEASURES:: N/A
[2020-02-22 11:55] VITALS: BP 161/85; TEMP 97.9
--- NOTE | 2020-02-22 13:33 | PRG ---
DATE OF SERVICE: 02/22/2020 SUBJECTIVE: This is a 60-year-old female hospitalized with abdominal pain and diarrhea. She has a positive history of rectal prolapse and is being planning to see Dr. Sumner. She underwent EGD and colonoscopy by Dr. John Ho on 02/20/2020. She had multiple colon polyps removed. She had done well for the last 24 to 48 hours. She has no abdominal pain. No nausea or vomiting. She is tolerating diet. She has had no bleeding. OBJECTIVE: VITAL SIGNS: Stable. Afebrile. Pulse is 67, blood pressure is 149/80. CARDIOVASCULAR SYSTEM: Normal heart sounds. LUNGS: Clear to auscultation. ABDOMEN: Soft. Abdomen is nontender. No organomegaly. No masses. Bowel sounds normal. RECOMMENDATIONS: The patient can be discharged home on Cipro 500 twice a day with Flagyl 500 mg 3 times a day for 7 days. She will come back to see Dr. John Ho as outpatient. Job ID: [id number]
--- NOTE | 2020-02-22 14:16 | OP ---
DATE OF PROCEDURE: 02/20/2020 PREOPERATIVE DIAGNOSES: 1. Left lower quadrant abdominal pain. 2. Hematochezia. 3. Nausea. 4. Rectal prolapse. PREOPERATIVE NOTE: Ms. Page was admitted to the hospital with left lower quadrant abdominal pain. CT scan showed some dilated small bowel loops, but her nausea and vomiting improved, and she was able to take a bowel prep. PROCEDURE PERFORMED: EGD and colonoscopy with snare polypectomy with tattoo and hemoclip placement. OPERATIVE NOTE: Informed consent was obtained for the patient. She was sedated with total intravenous anesthesia. The bite block was placed, and the endoscope was advanced easily to the second portion of the duodenum and retroflexion was performed in the stomach. The esophagus was normal. The GE junction was normal. The stomach was normal including retroflexed views. The pylorus and first and second portions of the duodenum were normal. The patient was turned around. Rectal exam was performed and was normal. The preparation quality was adequate. The colonoscope was advanced to the terminal ileum with some difficulty. The mucosa of the terminal ileum was normal. The ileocecal valve and appendiceal orifice were clearly identified. A 5 mm polyp was removed from the cecum by cold snare polypectomy. Two polyps measuring 5 to 6 mm were removed from the hepatic flexure by cold snare polypectomy. Two polyps were removed from the proximal transverse colon measuring 5 to 6 mm by cold snare polypectomy. The mid to distal transverse colon was found to have a flat 11 mm to 12 mm polyp, which was raised with saline and removed by snare cautery polypectomy in two pieces. One edge of the polyp did bleed and a hemoclip was placed over that site. A tattoo was placed just distal to this polyp. About 4 cm distal to that, another larger flat polyp was identified measuring 15 mm. An exchange was made for medium snare and this polyp again was removed in two pieces completely. A third 5 mm polyp was removed from the same area in the distal transverse colon by cold snare polypectomy. A 5 mm polyp was removed from the sigmoid colon by cold snare polypectomy. There was moderate diverticulosis in the sigmoid colon. Retroflexed views in the rectum were unremarkable. The rectal mucosa itself appeared normal. The dentate line appeared unremarkable. IMPRESSION: 1. Normal EGD. 2. Moderate sigmoid diverticulosis. 3. 5 mm cecum polyp. 4. Two polyps removed from the hepatic flexure measuring 5 to 6 mm. 5. Two polyps removed from the proximal transverse colon measuring 5 to 6 mm. 6. Two large polyps were removed from the mid to distal transverse colon by snare cautery polypectomy. These were removed piecemeal. The more proximal polyp was raised with saline, and a hemoclip was placed at the edge of that polypectomy site, which bled. A tattoo was placed between these two polyps, which were about 5 mm apart. A third distal transverse colon polyp was removed by cold snare polypectomy. 7. A 5 mm sigmoid polyp was removed. 8. No obvious source for abdominal pain was identified. She does have diverticulosis in the sigmoid colon. However, none of these looked obviously acutely inflamed. 9. Regarding the rectal prolapse, her rectal mucosa appeared normal on today's exam. RECOMMENDATIONS: 1. Await histopathology. 2. Advance diet. 3. She has been started on metronidazole and ciprofloxacin, and she can complete a 7-day course of those medications. 4. Hold Plavix for 5 days in light of the large flat polypectomy. 5. Dr. Valdez will cover the service tomorrow. 6. She will follow up with Dr. Sumner as an outpatient for further evaluation of her rectal prolapse. Job ID: [id number]
--- NOTE | 2020-02-25 05:56 | PQF ---
CLINICAL DOCUMENTATION CLARIFICATION FORM: Dear : Dexter Gupta Date / Time: 02/25/2020 0586 Please exercise your independent, professional judgment in responding to the clarification form. Clinical indicators are provided on the bottom of this form for your review In your clinical opinion based on clinical findings below, can you please identify the etiology of Abdominal pain with nausea and vomiting if due to: Please check appropriate box(es): [ ] Gastroenteritis [ ] Ileus [ ] Other diagnosis [ ] Unable to determine Physician Signature: Date/Time: For continuity of documentation, please document condition throughout progress notes and discharge summary. Thank You. To be completed by CDI/Coding staff for physician review: Present Clinical Indicators - Signs / Symptoms / Labs Results and Location in Medical Record [X] BP 116/71, Pulse 73, Resp 15, Temp 97.9 Vital signs 02/18 [X] Presents with abd pain, nausea, vomiting and diarrhea H&P p1 02/18 Dr Londono [X] suspected clostrodrium difficile colitis H&P p2 02/18 Dr Londono [X] suspected Gastroenteritis PN p2 02/18 Dr Noe [X] She does have some small bowel dilation and cam in with vomiting and could have ileus or partially obstructing process Consult Dr Ho 02/18 [X] WBC: 02/17=17.8 Laboratory 02/17 [X] Stool Culture: Moderate Normal Enteric ananth including yeast Stool Culture 02/18 Present Risk Factors Results and Location in Medical Record [X] 60 year-old Female H&P p1 02/18 Dr Londono [X] HIV H&P p1 02/18 Dr Londono [X] Colon polyp OP Note 02/21 [X] Sigmoid diverticulosis OP Note 02/21 Present Treatments Results and Location in Medical Record [X] IVF NS 1L JUN 10 [X] IV Metronidazole 500 mg JUN 10 [X] IV Zofran 4 mg JUN 10 [X] EGD and Colonoscopy with Polypectomy Operative report 02/19 Dr Ho [X] GE consult Consult Dr Ho 02/18 CDS/House Mover Supervisor Signature: Saba Saenznéstor Phone #: ext [phone] Date/Time: 02/25/202054 This is a permanent part of the Medical Record [facility]
--- NOTE | 2020-02-25 05:57 | PQF ---
CLINICAL DOCUMENTATION CLARIFICATION FORM: Dear : Dexter Gupta Date / Time: 02/25/2020 0557 Please exercise your independent, professional judgment in responding to the clarification form. Clinical indicators are provided on the bottom of this form for your review Please check appropriate box(es): [ ] Protein Calorie Malnutrition: [ ] Mild [ ] Moderate [ ] Severe [ ] Other Malnutrition (please specify) [ ] Underweight without malnutrition [ ] Cachexia [ ] Other diagnosis, please specify [ ] Unable to determine In addition, please specify: Present on Admission (POA): [ ] Yes [ ] No [ ] Unable to determine Physician Signature: Date/Time: For continuity of documentation, please document condition throughout progress notes and discharge summary. Thank You. To be completed by CDI/Coding staff for physician review: Present Clinical Indicators - Signs / Symptoms / Labs Results and Location in Medical Record [X] BP 96/60, Pulse 71, Resp 19, Temp 98.2 Vital signs 02/18 [X] Serum total protein 5.3, albumin 3.2, Globulin 2.1, Ratio 1.5 Laboratory 02/18 [X] BMI of 20.9 Nutritional assessment Dietitilarissa Robles 02/15 [X] Moderate temporalis and interosseous muscle, moderate orbital and buccal fat pad wasting, estimated intake <75& of needs x >3Months suggestive of moderate malnutrition-severe malnutrtion in the context illness vs envirconmental circumstances Nutritional assessment Dietnikos Robles 02/15 [X] Weight loss Consult Dr Gagnon 02/19 [X] Nausea, vomiting and diarrhea H&P p2 02/18 Dr Londono Present Risk Factors Results and Location in Medical Record [X] 60 year-old Female H&P p1 02/18 Dr Londono [X] HIV H&P p1 02/18 Dr Londono [X] Colon polyp OP Note 02/21 [X] Sigmoid diverticulosis OP Note 02/21 [X] Gastroenteritis DS 02/21 [X] Dehydration DS 02/21 [X] Ileus Consult 02/19 Present Treatments Results and Location in Medical Record [X] Dietary consult Nutritional assessment Dietitian [facility] 02/18 [X] Nutritional supplements Nutritional assessment Dietitian [facility] 02/18 [X] Weight monitoring Nutritional assessment Dietitian [facility] 02/18 [X] Oral intake monitoring Nutritional assessment Dietitian [facility] 02/18 [X] Appetite stimulant - medication Nutritional assessment Dietitian [facility] 02/18 CDS/General Labor Forklift Operator Signature: Saba Mccrary Phone #: ext [phone] Date/Time: 02/25/2020 0557 Moderate Malnutrition (in acute illness) ? Energy Intake: <75% of estimated energy requirement for > 7 days ? Weight Loss: 1-2%/1 week; 5%/ 1 month; 7.5%/3 months ? Other: mild body fat loss; mild muscle mass loss; mild fluid accumulation; Severe Malnutrition (in acute illness) ? Energy Intake: ? 50% of estimated energy requirement for ? 5 days ? Weight Loss: >2%/1 week; >5%/1 month; >7.5%/3 months ? Other: moderate body fat loss; moderate muscle mass loss; moderate- severe fluid accumulation; measurably reduced end stapler strength Moderate Malnutrition (in chronic illness) ? Energy Intake: <75% of estimated energy requirement for ?1 month ? Weight Loss: 5%/1 month; 7.5%/3 months; 10%/6 months; 20%/1 year ? Other: mild body fat loss; mild muscle mass loss; mild fluid accumulation Severe Malnutrition (in chronic illness) ? Energy Intake: ?75% of estimated energy requirement for ?1 month ? Weight Loss: >5%/1 month; >7.5%/3 months; >10%/6 months; >20%/1 year ? Other: severe body fat loss; severe muscle mass loss; severe fluid accumulation; measurably reduced end stapler strength This is a permanent part of the Medical Record [facility]
[2020-02-25 23:12] LABS: QuantiFERON-TB Gold Plus Negative (Negative)
[2020-02-26 15:14] LABS: Routine O & P Final report (.)
[2020-02-27 09:37] LABS: HIV-1 Quantitative, RNA PCR <20 copies/mL (.)
== END 2020-02-22 12:14 | disposition home or self-care (01) | DRG 392 ==
LOC: ERS 21:25 → INTOOBSV 23:35 → T4-B 23:35 → OBSVTOIN 02-19 14:04
PROVIDERS: ADMIT Internal Medicine; ATTEND Internal Medicine
PROC: 0DBL8ZZ Excision of Transverse Colon, Via Natural or Artificial Opening Endoscopic (ICD-10-PCS; principal; 2020-02-20)
PROC: 0DBH8ZZ Excision of Cecum, Via Natural or Artificial Opening Endoscopic (ICD-10-PCS; 2020-02-20)
PROC: 0DBN8ZZ Excision of Sigmoid Colon, Via Natural or Artificial Opening Endoscopic (ICD-10-PCS; 2020-02-20)
PROC: 0DJ08ZZ Inspection of Upper Intestinal Tract, Via Natural or Artificial Opening Endoscopic (ICD-10-PCS; 2020-02-20)
DX: R10.9 Unspecified abdominal pain (principal); M48.56XA Collapsed vertebra, not elsewhere classified, lumbar region, initial encounter for fracture; K56.7 Ileus, unspecified; R11.2 Nausea with vomiting, unspecified; Z21 Asymptomatic human immunodeficiency virus [HIV] infection status; K52.9 Noninfective gastroenteritis and colitis, unspecified; Z20.828 Contact with and (suspected) exposure to other viral communicable diseases; I25.10 Atherosclerotic heart disease of native coronary artery without angina pectoris; F17.210 Nicotine dependence, cigarettes, uncomplicated; E86.0 Dehydration; G89.29 Other chronic pain; K62.3 Rectal prolapse; I10 Essential (primary) hypertension; K57.30 Diverticulosis of large intestine without perforation or abscess without bleeding; E78.5 Hyperlipidemia, unspecified; K63.5 Polyp of colon; R19.7 Diarrhea, unspecified; Z95.1 Presence of aortocoronary bypass graft; Z90.49 Acquired absence of other specified parts of digestive tract; Z90.710 Acquired absence of both cervix and uterus; Z87.898 Personal history of other specified conditions; Z79.899 Other long term (current) drug therapy; I69.311 Memory deficit following cerebral infarction
CPT/HCPCS: 36415; 70450; 74177; 80053; 83605; 83690; 85007; 85025; 85027; 85048; 86361; 86480; 86780; 87015; 87040; 87045; 87046; 87177; 87206; 87324; 87427; 87449; 87536; 87635; 88305; 93005; 96365; 96368; 96372; 96375; 96376; G0378; J0692; J0744; J1650; J2405; J2704; J3480; Q9967; S0028; U0003

== ENCOUNTER 2020-03-11 06:59 | Outpatient (CLI) | payer MEDICARE ==
[2020-03-11 18:20] LABS: #Basophils 0.1 10x3/uL (0.0-0.2); #Eosinphils 0.2 10x3/uL (0.0-0.5); #Monocytes 0.5 10x3/uL (0.0-1.1); #Neutrophils 4.1 10x3/uL (1.5-8.4); %Basophils 0.6 % (0.0-2.0); %Eosinophils 2.7 % (0.0-6.0); %Lymphocytes 37.3 % (18.0-47.0); %Monocytes 6.3 % (0.0-10.0); %Neutrophils 52.8 % (40.0-75.0); Hemoglobin 11.4 g/dL (12.0-16.0); Mean Corpuscular HGB CONC 33.1 G/DL (32.0-36.0); Mean Corpuscular Volume 111.7 fl (80.0-100.0); Mean Platelet Volume 10.1 fl (7.4-10.4); Platelet Count 402 10x3/uL (130-400); RBC Distribution Width 12.8 % (11.5-14.5); Red Blood Cell (RBC) Count 3.08 10x6/uL (3.90-5.20); White Blood Cell (WBC) Count 7.8 10x3/uL (4.5-11.0)
[2020-03-11 18:36] LABS: Anion Gap 14 mmol/L (10-20); BUN (Urea Nitrogen) 9 mg/dL (9.8-20.1); Calc. Creatinine Clearance 0 mL/min (70-130); Calcium 8.9 mg/dL (7.8-10.44); Carbon Dioxide 25 mmol/L (23-31); Chloride 107 mmol/L (98-107); Glucose 77 mg/dL (80-115); Potassium 4.5 mmol/L (3.5-5.1); Sodium 141 mmol/L (136-145)
[2020-03-11 19:14] LABS: Macrocytosis SLIGHT = 6-15 cells (100X) (0-5/hpf)
[2020-03-11 19:19] LABS: Platelet Morphology Comment Appears Adequate; Reflex for Review?? YES
[2020-03-11 21:22] LABS: Hemoglobin A1c 5.1 % (4.0-6.0)
[2020-03-12 03:12] LABS: SARS-CoV-2 MS2 Positive; SARS-CoV-2 N Gene Negative; SARS-CoV-2 S Gene Negative; SARS-CoV-2 by NAA Not Detected (NotDetected); SARS-CoV-2 orf1ab Negative
== END 2020-03-11 07:00 | disposition home or self-care (01) ==
LOC: LABBT 06:59
PROVIDERS: ATTEND Specialist
DX: Z01.818 Encounter for other preprocedural examination (principal); K62.3 Rectal prolapse; Z20.828 Contact with and (suspected) exposure to other viral communicable diseases
CPT/HCPCS: 80048; 83036; 85025; U0003; 85060; 87635; 93005; 93010

== ENCOUNTER 2020-03-11 16:00 | Inpatient (IN) | payer MEDICARE ==
[2020-03-15 09:49] VITALS: BMI 20.2
[2020-03-16] MEDS ORDERED: Ketorolac Tromethamine 30 MG/ML VIAL ONE ×3 (06:07→20:58)
[2020-03-16] MEDS ORDERED: Acetaminophen 500 MG TAB ONE (06:07)
[2020-03-16] MEDS ORDERED: cefOXitin Sodium/Dextrose 2 GM/50 ML BAG ONE (06:07)
[2020-03-16] MEDS ORDERED: Lidocaine 1% w/Epinephrine 1:100K 20 ML VIAL ONE (06:40)
[2020-03-16] MEDS ORDERED: Bupivacaine 0.25% HCL 30 ML VIAL ONE (06:40)
[2020-03-16] MEDS ORDERED: Midazolam HCl 2 mg/2 ml Vial ONE (07:20)
[2020-03-16] MEDS ORDERED: Fentanyl 100 MCG/2 ML VIAL ONE ×6 (07:20→12:37)
[2020-03-16] MEDS ORDERED: Rocuronium Bromide 50 MG/5 ML VIAL ONE (09:03)
[2020-03-16] MEDS ORDERED: ceFOXitin 1 GM VIAL ONE (09:48)
[2020-03-16] MEDS ORDERED: Rocuronium Bromide 10 MG/ML (10ML VIAL) ONE (10:12)
[2020-03-16] MEDS ORDERED: Glycopyrrolate 0.2 MG/ML 5 ML SYRINGE ONE (10:12)
[2020-03-16] MEDS ORDERED: Ondansetron PF 4 MG/2 ML Vial ONE (10:12)
[2020-03-16] MEDS ORDERED: Labetalol HCl 100 MG/20 ML VIAL ONE (10:12)
[2020-03-16] MEDS ORDERED: Bupivacaine HCl 0.5%/Epinephrine 1:200,000/PF 30 ml Vial ONE (10:12)
[2020-03-16] MEDS ORDERED: Dexamethasone 20 MG/5 ML VIAL ONE (10:12)
[2020-03-16] MEDS ORDERED: PROPOFOL 200 MG/20 ML VIAL ONE (10:12)
[2020-03-16] MEDS ORDERED: Promethazine HCl 25 MG/ML VIAL IM PRN ×2 (11:03→11:09)
[2020-03-16] MEDS ORDERED: Ondansetron PF 4 MG/2 ML Vial IVP PRN (11:03)
[2020-03-16] MEDS ORDERED: Cyclobenzaprine 10 MG TAB PO PRN (11:03)
[2020-03-16] MEDS ORDERED: Morphine 2 MG/ML VIAL SLOW IVP PRN (11:03)
[2020-03-16] MEDS ORDERED: hydrALAZINE 20 MG/ML VIAL SLOW IVP PRN (11:03)
[2020-03-16] MEDS ORDERED: Promethazine HCl 25 MG/ML VIAL SLOW IVP PRN (11:09)
[2020-03-16] MEDS ORDERED: Ondansetron HCl/PF 4 MG/2 ML Vial IVP PRN (11:09)
[2020-03-16] MEDS ORDERED: D5 1/2 NS w/20 mEq KCL 1,000 ML ONE ×2 (11:28→19:33)
[2020-03-16] MEDS ORDERED: HYDROmorphone 2 MG/ML VIAL ONE (13:11)
--- NOTE | 2020-03-16 14:27 | OP ---
DATE OF PROCEDURE: 03/16/2020 PREOPERATIVE DIAGNOSIS: Rectal prolapse. POSTOPERATIVE DIAGNOSIS: Rectal prolapse. PROCEDURE PERFORMED: Laparoscopic hand-assisted sigmoid colectomy with rectopexy. ANESTHESIA: General endotracheal. INDICATIONS: The patient is a 60-year-old white female. She presents with obvious full-thickness rectal prolapse and fecal incontinence. She has had a colonoscopy performed within the past month, which shows no evidence of concerning abnormality. She was taken to the operating room at this time for sigmoid colectomy and rectopexy. DESCRIPTION OF OPERATION: Informed consent was obtained. The patient taken to the operating room where general endotracheal anesthesia obtained with the patient in supine position. ASHLEY blocks were placed by Anesthesia preoperatively. She was placed in dorsal lithotomy. Abdomen was prepped with ChloraPrep and draped in sterile fashion. Local anesthetic was infiltrated using 1% lidocaine with epinephrine. A 5-mm supraumbilical incision was created, through which a Veress needle was passed in the peritoneal cavity. Pneumoperitoneum established using carbon dioxide up to pressure of 15 mmHg. A 5-mm trocar port was passed through the same incision and laparoscopic camera was passed through this port. Under direct vision, a 12-mm right lower quadrant port was placed. There were numerous adhesions to the anterior abdominal wall from prior surgery. These were entirely omental and were all taken down using the LigaSure, completely cleared in the anterior abdominal wall. A site was selected for the extraction port in the left lower quadrant. An 8-cm oblique incision was created after local anesthetic was infiltrated. Dissection carried through skin and subcutaneous tissue and muscle splitter was used to gain access into the abdominal cavity. The Abhijit wound retractor was placed followed by the GelPort. Hand was passed into the abdominal cavity and evaluation was carried out. The patient was noted to have a very redundant sigmoid colon. The left colon was mobilized from lateral abdominal wall by incising the white line of Toldt. Sigmoid colon was mobilized from the lateral abdominal wall and dissection was begun at about the sacral promontory, incising and dividing the mesentery. The left ureter was identified and swept posteriorly and kept free from harm. The mesentery was divided in a descending fashion down into the pelvis. The peritoneum was incised on either side of the rectum, extending down to the pelvic gutter. I mobilized the mesentery until I was able to distract the rectum in a cephalad direction. I marked the area that was adjacent to the sacral promontory. About a centimeter proximal to this, the upper rectum was cleared of its mesorectum and was divided at this level using an [place] stapler with a blue load. The colon was mobilized down to the pelvis and the segment would be easily anastomosed to the rectal stump without tension was identified and this was marked with the LigaSure. The colon was then withdrawn through the anterior abdominal wall at the extraction site. Sterile drapes were placed around this. The mesentery was fully dissected at this level. Using segregated instruments, the colon was incised and checked for caliber with EEA sizers. A 29-mm EEA stapler was selected and the anvil was obtained, passed through the enterotomy and brought out several centimeters proximal antimesenteric. The enterotomy was then excluded in continuity with redundant colon with a final firing of the [place] stapler. The specimen was passed off the field as well as all drapes and instrumentation. Gloves were changed and operation was continued. The post of the stapler was cleansed with Betadine and a Prolene pursestring suture was placed. The anvil was dropped back down to the abdominal cavity. From below, EEA sizers were passed up to the end of the rectal stump uneventfully including the 31-mm sizer. The 29-mm stapler was then passed through the anus up to the rectal stump and the spike was advanced just anterior to the staple line. The anvil was approximated to the rectal stump and 2 segments were approximated by closing the stapler and anastomosed by firing the stapler. Staple was removed uneventfully. The rings were checked and found to be intact. Attention was then turned to the rectopexy. Two separate sutures of 2-0 Ethibond were placed between the lateral rectal wall just distal to the anastomosis and to the sacral promontory. One of these sutures was on either side of midline. The anastomosis was then checked to make sure it was airtight by insufflating air while the anastomosis was under water. There was no evidence of air leak. All irrigant was aspirated. The fascia of the right lower quadrant was closed with 0 Vicryl suture using a GraNee needle. All ports and instruments were removed under direct vision. The abdominal wall was cleansed with saline and all laparoscopic instrumentation was passed off the field. The closing tray was utilized. Gowns and gloves were changed. The left lower quadrant incision was closed in 2 layers using running suture of non-looped #1 PDS. The wound was copiously irrigated with over a liter of irrigant. 10 mL of additional local anesthetic was infiltrated in the interfascial layer. The wound was closed in layers and with 3-0 and 4-0 Monocryl. Dermabond was placed externally. The other incision sites were closed with 4-0 Monocryl and Dermabond. There were no complications with any portion of the procedure. Blood loss was negligible. The patient tolerated the procedure well and was taken to recovery room in stable condition. Job ID: [id number]
[2020-03-16] MEDS ORDERED: Promethazine HCl 25 MG/ML VIAL ONE (14:57)
[2020-03-16] MEDS: Ketorolac Tromethamine 30 MG/ML VIAL IVP SCH ×3 (15:00→20:59)
[2020-03-16] MEDS: Gabapentin 300 MG CAP PO SCH ×2 (15:11→20:58)
[2020-03-16] MEDS ORDERED: Morphine 4 MG/ML VIAL ONE ×3 (16:34→23:32)
[2020-03-16] MEDS: Morphine 4 MG/ML VIAL SLOW IVP PRN ×3 (16:34→23:34)
[2020-03-16] MEDS: D5 1/2 NS w/20 mEq KCL 1,000 ML IV SCH ×2 (19:27→21:09)
[2020-03-16] MEDS: Atorvastatin Calcium 40 MG TAB PO SCH (20:58)
[2020-03-16] MEDS: Famotidine/PF 20 mg/2ml Vial SLOW IVP SCH (20:59)
[2020-03-16] MEDS: Enoxaparin Sodium 30 MG/0.3 ML SYRINGE SC SCH (20:59)
[2020-03-16] MEDS ORDERED: EMTRICITAB PO SCH (21:00)
[2020-03-16] MEDS: EFAVIRENZ PO SCH (21:00)
[2020-03-16] MEDS: TENOFOVIR PO SCH (21:00)
[2020-03-16] MEDS ORDERED: [UNRECOGNIZED DRUG - OTHER] PO SCH (21:00)
[2020-03-16] MEDS ORDERED: EFAVIRENZ PO SCH (21:00)
[2020-03-16] MEDS ORDERED: Emtricitabine/Tenofovir 200-300 MG TAB PO SCH (21:00)
[2020-03-16] MEDS: EMTRICITAB PO SCH (21:00)
[2020-03-16] MEDS ORDERED: TENOFOVIR PO SCH (21:00)
[2020-03-16] MEDS: Famotidine 20 MG TAB PO SCH (21:16)
[2020-03-16] MEDS ORDERED: Sodium Chloride 0.9% 10 ML ONE (23:33)
[2020-03-17] MEDS ORDERED: Ketorolac Tromethamine 30 MG/ML VIAL ONE (02:31)
[2020-03-17] MEDS ORDERED: HYDROcodone/Acetaminophen 7.5/325 mg Tablet ONE ×4 (02:35→12:36)
[2020-03-17] MEDS: Ketorolac Tromethamine 30 MG/ML VIAL IVP SCH ×4 (02:37→20:51)
[2020-03-17] MEDS: D5 1/2 NS w/20 mEq KCL 1,000 ML IV SCH ×4 (03:59→23:36)
[2020-03-17] MEDS ORDERED: Morphine 4 MG/ML VIAL ONE (06:20)
[2020-03-17] MEDS: Morphine 4 MG/ML VIAL SLOW IVP PRN (06:22)
--- NOTE | 2020-03-17 07:54 | PDOC.GSPN ---
Surgery Progress Note: Subj - Subjective Patient reports: positive flatus, tolerating liquids well Narrative: Ms. Page is a 60 year old female with a PMH of CAD, HTN, and HIV who is POD 1 for a laparoscopic sigmoid colectomy with rectopexy. Patient stated she was not able to sleep well. She stated she had several episodes of flatulence and one episode of flatulence with the passage of blood. She stated she has a significant amount of pain which she trated as a 6 out of 10. She stated the pain is mainly in the LLQ. She also endorsed a burning sensation on her sides with movement. She denied any nausea or vomiting. She endorsed being able to tolerate liquids without any problems. She has been unable to ambulate with her mar, but she has been switching positions in the hospital bed. Surgery Progress Note: Obj - Vital signs Vital signs: Vital Signs - Most Recent Temp Pulse Resp BP Pulse Ox 98.9 F 84 20 160/95 H 98 03/17/20 03:00 03/17/20 03:00 03/17/20 03:00 03/17/20 03:00 03/17/20 03:00 - Physical Exam General: no distress Cardiovascular: regular rate and rhythm, no murmur Respiratory: clear to auscultation, normal respiratory effort, breath sounds present Abdomen: positive bowel sounds, tender Psychiatric: memory intact, oriented to time, oriented to person, oriented to place Wound: dressing clean,dry,intact, erythma/edema (erythema of RLQ incision) Surgery Progress Note: A/P - Plan Plan: Ms. Page is a 60 year old female with a PMH of CAD, HTN, and HIV who is POD 1 for laparoscopic sigmoid colectomy and rectopexy. Patient appears to be r ecovering well and is in no acute distress. -Continue patient on DVT prophylaxis with lovenox and SCD -Continue patient on liquid diet as tolerated -remove Mar catheter if there is appropriate urine output -continue to monitor I&Os -Encourage ambulation in patient with removal of mar catheter -monitor patient's pain level and utilize ordered medication options -considered discharge with appropriate ambulation and tolerating liquids PO
[2020-03-17] MEDS ORDERED: HYDROcodone/Acetaminophen 7.5/325 mg Tablet PO PRN (08:27)
[2020-03-17] MEDS: HYDROcodone/Acetaminophen 7.5/325 mg Tablet PO PRN ×3 (08:40→23:34)
[2020-03-17] MEDS: Lisinopril 20 MG TAB PO SCH (08:41)
[2020-03-17] MEDS: Famotidine 20 MG TAB PO SCH ×2 (08:42→20:52)
[2020-03-17] MEDS: Famotidine/PF 20 mg/2ml Vial SLOW IVP SCH ×2 (08:42→21:06)
[2020-03-17] MEDS: Gabapentin 300 MG CAP PO SCH ×3 (08:42→20:52)
[2020-03-17 09:16] LABS: #Basophils 0.1 thou/uL (0.0-0.2); #Eosinphils 0.2 thou/uL (0.0-0.7); #Lymphocytes 1.8 thou/uL (1.20-3.40); #Monocytes 0.8 thou/uL (0.11-0.59); #Neutrophils 5.7 thou/uL (1.40-6.50); %Basophils 0.6 % (0.0-1.0); %Eosinophils 2.6 % (0.0-10.0); %Lymphocytes 21.2 % (21.0-51.0); %Monocytes 9.3 % (0.0-10.0); %Neutrophils 66.3 % (42.0-75.0); Hemoglobin 10.8 g/dL (12.0-16.0); Mean Platelet Volume 7.8 fL (7.4-10.4); Platelet Count 281 thou/uL (130-400); RBC Distribution Width 11.6 % (11.5-14.5); Red Blood Cell (RBC) Count 2.85 mill/uL (4.20-5.40); White Blood Cell (WBC) Count 8.6 thou/uL (4.8-10.8)
[2020-03-17 09:28] LABS: Anion Gap 11 mmol/L (10-20); BUN (Urea Nitrogen) Less than 4 mg/dL (9.8-20.1); Calc. Creatinine Clearance 69 mL/min (70-130); Calcium 7.9 mg/dL (7.8-10.44); Carbon Dioxide 20 mmol/L (23-31); Chloride 110 mmol/L (98-107); Glucose 96 mg/dL (80-115); Potassium 4.1 mmol/L (3.5-5.1); Sodium 137 mmol/L (136-145)
[2020-03-17] MEDS: Enoxaparin Sodium 30 MG/0.3 ML SYRINGE SC SCH (20:51)
[2020-03-17] MEDS: EFAVIRENZ PO SCH (20:51)
[2020-03-17] MEDS: EMTRICITAB PO SCH (20:51)
[2020-03-17] MEDS: TENOFOVIR PO SCH (20:51)
[2020-03-17] MEDS: Atorvastatin Calcium 40 MG TAB PO SCH (20:52)
[2020-03-18] MEDS: Ketorolac Tromethamine 30 MG/ML VIAL IVP SCH ×2 (02:38→08:24)
--- NOTE | 2020-03-18 06:48 | PDOC.GSPN ---
Surgery Progress Note: Subj - Subjective Narrative: Ms. Page is a 60 y.o. female POD 2 from laparoscopic sigmoid colectomy with rectopexy. She is doing well this morning and reports being able to sleep through the night last night. She has been ambulating frequently, been able to tolerate her full liquid diet, and has had several loose bowel movements. She reports abdominal tenderness around her incision sites that are manageable with [place]. Her bowel movements continue to have a dark brown hue to them but she d enies any skylar blood in her stools. She denies nausea, vomiting, constipation, shortness of breath, chest pain, and dysuria. Surgery Progress Note: Obj - Vital signs Vital signs: Vital Signs - Most Recent Temp Pulse Resp BP Pulse Ox 98.0 F 74 16 132/80 95 03/18/20 03:01 03/18/20 03:01 03/18/20 03:01 03/18/20 03:01 03/18/20 03:01 - Physical Exam General: no distress Neck: no lymphadectomy Cardiovascular: regular rate and rhythm Respiratory: clear to auscultation, normal expansion, normal respiratory effort, breath sounds present Abdomen: soft, nondistended, positive bowel sounds, appropriately tender Wound: healing well. negative: erythma/edema Additional exam: no peripheral edema present Surgery Progress Note: Results - Labs Result Diagrams: 03/17/20 08:58 03/17/20 08:58 Surgery Progress Note: A/P - Plan Plan: Ms. Page is a 60 y.o. female POD 2 laparoscopic colectomy and rectopexy. She is doing well overall and her healing is progressing well. Plan - Advance diet to solid foods - D/C IV fluids given good PO intake and urine output - Continue pain management - Continue DVT prophylaxis: SCDs, ambulation, and enoxaparin - Continue incentive spirometry - Discharge home within the next 24 hours
[2020-03-18] MEDS: Gabapentin 300 MG CAP PO SCH (08:22)
[2020-03-18] MEDS: Lisinopril 20 MG TAB PO SCH (08:23)
[2020-03-18] MEDS: Famotidine 20 MG TAB PO SCH (08:24)
[2020-03-18] MEDS: Famotidine/PF 20 mg/2ml Vial SLOW IVP SCH (08:27)
[2020-03-18] MEDS: HYDROcodone/Acetaminophen 7.5/325 mg Tablet PO PRN (09:21)
[2020-03-18 12:18] VITALS: BP 136/76; TEMP 97.5
[2020-03-18] MEDS ORDERED: FLU VACC QS2020-21(6MOS UP)/PF 60 MCG/0.5 ML SYRINGE IM ONE (14:45)
== END 2020-03-18 13:15 | disposition home or self-care (01) | DRG 331 ==
LOC: SURG A 03-16 06:04 → EDSTATUS 03-16 16:00 → SURG A 03-17 14:37
PROVIDERS: ADMIT Specialist; ATTEND Specialist
PROC: 0DBN0ZZ Excision of Sigmoid Colon, Open Approach (ICD-10-PCS; principal; 2020-03-16)
PROC: 0DQP0ZZ Repair Rectum, Open Approach (ICD-10-PCS; 2020-03-16)
PROC: 3E02340 Introduction of Influenza Vaccine into Muscle, Percutaneous Approach (ICD-10-PCS; 2020-03-18)
DX: K62.3 Rectal prolapse (principal); I10 Essential (primary) hypertension; Z23 Encounter for immunization; Z21 Asymptomatic human immunodeficiency virus [HIV] infection status; I25.10 Atherosclerotic heart disease of native coronary artery without angina pectoris; F32.9 Major depressive disorder, single episode, unspecified; E78.00 Pure hypercholesterolemia, unspecified; G89.29 Other chronic pain; D64.9 Anemia, unspecified; F41.9 Anxiety disorder, unspecified; E78.5 Hyperlipidemia, unspecified; Z95.5 Presence of coronary angioplasty implant and graft; Z90.49 Acquired absence of other specified parts of digestive tract; Z95.1 Presence of aortocoronary bypass graft; Z79.01 Long term (current) use of anticoagulants; Z79.82 Long term (current) use of aspirin; Z79.899 Other long term (current) drug therapy; Z87.891 Personal history of nicotine dependence; Z86.73 Personal history of transient ischemic attack (TIA), and cerebral infarction without residual deficits
CPT/HCPCS: 36415; 36416; 80048; 85025; 88307; 90471; 90662; G0008; J0694; J1100; J1170; J1650; J1885; J2250; J2270; J2405; J2550; J2704; J3010; J3480; S0020; S0028

== ENCOUNTER 2020-07-26 12:37 | Emergency (ER) | payer MEDICARE ==
[2020-07-26] MEDS ORDERED: Fentanyl 100 MCG/2 ML VIAL ONE (13:39)
[2020-07-26] MEDS ORDERED: Ketorolac Tromethamine 30 MG/ML VIAL ONE ×2 (13:39→13:42)
== END 2020-07-26 14:23 | disposition home or self-care (01) ==
LOC: ERS 12:37
DX: S70.02XA Contusion of left hip, initial encounter (principal); Z21 Asymptomatic human immunodeficiency virus [HIV] infection status; I10 Essential (primary) hypertension; F17.210 Nicotine dependence, cigarettes, uncomplicated; Z79.82 Long term (current) use of aspirin; Z86.73 Personal history of transient ischemic attack (TIA), and cerebral infarction without residual deficits; Z79.899 Other long term (current) drug therapy; W19.XXXA Unspecified fall, initial encounter
CPT/HCPCS: 96372; J1885; J3010